=== PATIENT | male | born 1930 | race Caucasian/White ===

== ENCOUNTER 2017-10-01 17:03 | Emergency (ER) | payer MEDICARE, OTHER ==
[~2017-10-01] VITALS: Ht 175.3 cm; Wt 110.0 kg
[~2017-10-01 17:03] MED LIST: ACET650T12 PO; BENZ100C5 PO; BYST5TAB2 PO; COUM1TAB14 PO; COUM1TAB17 PO; COUM1TAB19 PO; LASI40TA PO; LEVA1TAB2 PO; LEVO500T3 PO; OCUVTAB PO
[2017-10-01] MEDS ORDERED: VENTAER IN (17:19)
[2017-10-01] MEDS ORDERED: ATEN25TA PO (17:19)
[2017-10-01] MEDS ORDERED: LANS15CA PO (17:19)
[2017-10-01] MEDS ORDERED: BREO1INH INH (17:19)
[2017-10-01] MEDS ORDERED: COUM2.5T17 PO (17:19)
[2017-10-01] MEDS ORDERED: LIDOCAINE 2% 5ML JELLY UROJET TOP ONE (18:00)
[2017-10-01 18:06] LABS: MEAN CORPUSCULAR HEMOGLOBIN 30.7 pg (27.0-33.0); MEAN CORPUSCULAR VOLUME 93.1 fl (80.0-96.0); PLATELET COUNT, AUTOMATED 238 10^3/uL (150-450); RED CELL DISTRIBUTION WIDTH 14.4 % (11.5-14.5); WHITE BLOOD COUNT 10.4 10^3/uL (4.0-10.0)
[2017-10-01 18:20] LABS: INR 1.97
[2017-10-01 19:55] VITALS: BP 178/104
== END 2017-10-01 19:58 | disposition home or self-care (01) ==
LOC: M ED 17:03
DX: N48.89 Other specified disorders of penis (principal); I48.91 Unspecified atrial fibrillation; I10 Essential (primary) hypertension; J44.9 Chronic obstructive pulmonary disease, unspecified; C61 Malignant neoplasm of prostate; R91.8 Other nonspecific abnormal finding of lung field; Z79.01 Long term (current) use of anticoagulants; Z79.899 Other long term (current) drug therapy

== ENCOUNTER 2017-10-09 05:46 | Emergency (ER) | payer MEDICARE, OTHER ==
[~2017-10-09] VITALS: Ht 175.3 cm; Wt 64.5 kg
[~2017-10-09 05:46] MED LIST changes: +ATEN25TA PO; +BREO1INH INH; +COUM2.5T17 PO; +LANS15CA PO; +VENTAER IN
[2017-10-09] MEDS ORDERED: PREV15CA18 PO (06:21)
[2017-10-09] MEDS ORDERED: LIDOCAINE 2% 5ML JELLY UROJET TOP ONE (06:30)
[2017-10-09 09:06] VITALS: BP 162/80
== END 2017-10-09 09:10 | disposition home or self-care (01) ==
LOC: EDBD 05:46 → M ED 05:46
DX: R31.9 Hematuria, unspecified (principal); C61 Malignant neoplasm of prostate; I10 Essential (primary) hypertension; I48.91 Unspecified atrial fibrillation; R91.8 Other nonspecific abnormal finding of lung field; K44.9 Diaphragmatic hernia without obstruction or gangrene; K76.89 Other specified diseases of liver; Z79.899 Other long term (current) drug therapy; Z79.01 Long term (current) use of anticoagulants

== ENCOUNTER 2017-10-19 20:32 | Emergency (ER) | payer MEDICARE, OTHER ==
[~2017-10-19] VITALS: Ht 175.3 cm; Wt 64.5 kg
[~2017-10-19 20:32] MED LIST changes: +PREV15CA18 PO
[2017-10-19] MEDS ORDERED: NORCO, ANEXSIA 5/325MG TABLET (HYDROcodone/ACETAMINOPHEN) PO ONE ×2 (21:15→22:30)
[2017-10-19 21:22] LABS: BASO % 0.1 % (0.0-1.0); IMMATURE GRANULOCYTE % 0.9 % (0-0); LYMPH # 0.4 10^3/uL (1.5-4.5); LYMPH % 1.7 % (24.0-44.0); MEAN CORPUSCULAR HEMOGLOBIN 31.2 pg (27.0-33.0); MEAN CORPUSCULAR HGB CONC 33.5 g/dl (32.0-36.5); MEAN CORPUSCULAR VOLUME 93.2 fl (80.0-96.0); MONO # 1.4 10^3/uL (0.0-0.8); MONO % 6.7 % (0.0-5.0); NEUTROPHILS # 18.5 10^3/uL (1.8-7.7); NEUTROPHILS % 90.6 % (36.0-66.0); PLATELET COUNT, AUTOMATED 280 10^3/uL (150-450); RED CELL DISTRIBUTION WIDTH 13.9 % (11.5-14.5); WHITE BLOOD COUNT 20.4 10^3/uL (4.0-10.0)
[2017-10-19] MEDS ORDERED: MORPHINE 2 MG/ML 1ML SYRINGE IV ONE (22:30)
[2017-10-19] MEDS ORDERED: LISINOPRIL 20 MG TAB PO ONE (22:30)
--- NOTE | 2017-10-19 23:00 | REPUSA ---
Clinical history: Pain, swelling. Findings: The common femoral, superficial femoral, popliteal, and other deep venous structures compre ss normally and demonstrate normal color Doppler flow. Normal venous waveforms with augmentation are seen. Impression: No evidence of deep vein thrombosis in the left femoral popliteal venous system.
[2017-10-19 23:27] LABS: ANION GAP 12 MEQ/L (8-16); BLOOD UREA NITROGEN 22 MG/DL (7-18); CALCIUM LEVEL 8.7 MG/DL (8.8-10.2); CARBON DIOXIDE LEVEL 21 MEQ/L (21-32); CHLORIDE LEVEL 101 MEQ/L (98-107); CREATININE FOR GFR 0.83 MG/DL (0.70-1.30); GLOMERULAR FILTRATION RATE > 60.0 (>35); GLUCOSE, FASTING 110 MG/DL (83-110); POTASSIUM SERUM 4.2 MEQ/L (3.5-5.1); SODIUM LEVEL 134 MEQ/L (136-145)
[2017-10-19 23:28] LABS: INR 5.64
[2017-10-20] MEDS ORDERED: PHYTONADIONE 5 MG TAB PO ONE
[2017-10-20] MEDS ORDERED: AUGMENTIN 875 MG TAB PO ONE
[2017-10-20] MEDS ORDERED: AUGM500T34 PO (00:18)
[2017-10-20] MEDS ORDERED: NORCO 5/325MG TABLET (BULK FOR ED) PO ONE (00:30)
[2017-10-20 00:37] VITALS: BP 94/60
[2017-10-20] MEDS ORDERED: WARF-18 PO (00:41)
== END 2017-10-20 01:01 | disposition home or self-care (01) ==
LOC: M ED 20:32
DX: I83.90 Asymptomatic varicose veins of unspecified lower extremity (principal); I83.008 Varicose veins of unspecified lower extremity with ulcer other part of lower leg; L03.116 Cellulitis of left lower limb; D68.32 Hemorrhagic disorder due to extrinsic circulating anticoagulants; I48.91 Unspecified atrial fibrillation; I10 Essential (primary) hypertension; K21.9 Gastro-esophageal reflux disease without esophagitis; J44.9 Chronic obstructive pulmonary disease, unspecified; Z79.01 Long term (current) use of anticoagulants; Z79.899 Other long term (current) drug therapy

== ENCOUNTER → 2017-12-24 | Outpatient (CLI) | payer MEDICARE, OTHER ==
[2017-12-24 13:17] LABS: BASO % 0.4 % (0.0-1.0); EOS % 0.3 % (0.0-3.0); HEMATOCRIT 34.2 % (42.0-52.0); HEMOGLOBIN 11.1 g/dl (14.0-18.0); IMMATURE GRANULOCYTE % 0.9 % (0-3.0); LYMPH # 0.7 10^3/uL (1.5-4.5); LYMPH % 9.7 % (24.0-44.0); MEAN CORPUSCULAR HEMOGLOBIN 30.9 pg (27.0-33.0); MEAN CORPUSCULAR HGB CONC 32.5 g/dl (32.0-36.5); MEAN CORPUSCULAR VOLUME 95.3 fl (80.0-96.0); MONO # 0.9 10^3/uL (0.0-0.8); MONO % 11.8 % (0.0-5.0); NEUTROPHILS # 5.8 10^3/uL (1.8-7.7); NEUTROPHILS % 76.9 % (36.0-66.0); PLATELET COUNT, AUTOMATED 222 10^3/uL (150-450); RED BLOOD COUNT 3.59 10^6/uL (4.30-6.10); RED CELL DISTRIBUTION WIDTH 17.3 % (11.5-14.5); WHITE BLOOD COUNT 7.5 10^3/uL (4.0-10.0)
[2017-12-24 14:03] LABS: ANION GAP 9 MEQ/L (8-16); BLOOD UREA NITROGEN 29 MG/DL (7-18); CALCIUM LEVEL 8.9 MG/DL (8.8-10.2); CARBON DIOXIDE LEVEL 24 MEQ/L (21-32); CHLORIDE LEVEL 108 MEQ/L (98-107); CREATININE FOR GFR 0.81 MG/DL (0.70-1.30); GLOMERULAR FILTRATION RATE > 60.0 (>35); GLUCOSE, FASTING 80 MG/DL (70-100); POTASSIUM SERUM 4.6 MEQ/L (3.5-5.1); SODIUM LEVEL 141 MEQ/L (136-145)
== END ==
LOC: M LAB 12:52
DX: I70.213 Atherosclerosis of native arteries of extremities with intermittent claudication, bilateral legs (principal); I70.249 Atherosclerosis of native arteries of left leg with ulceration of unspecified site; I87.393 Chronic venous hypertension (idiopathic) with other complications of bilateral lower extremity
CPT/HCPCS: 80048

== ENCOUNTER 2017-12-29 17:10 | Inpatient (IN) | payer MEDICARE, OTHER ==
[2017-12-29] MEDS: RIVAROXABAN 15 MG TAB (XARELTO) PO (17:00)
[2017-12-29] MEDS: METOPROLOL 5 MG/5 ML VIAL IV ×3 (18:15→18:25)
[2017-12-29] MEDS: METOPROLOL TART 25 MG TABLET PO (18:15)
[2017-12-29 18:31] LABS: BASO % 0.1 % (0.0-1.0); HEMATOCRIT 31.5 % (42.0-52.0); HEMOGLOBIN 10.6 g/dl (14.0-18.0); IMMATURE GRANULOCYTE % 0.8 % (0-3.0); LYMPH # 0.4 10^3/uL (1.5-4.5); LYMPH % 1.8 % (24.0-44.0); MEAN CORPUSCULAR HEMOGLOBIN 31.4 pg (27.0-33.0); MEAN CORPUSCULAR HGB CONC 33.7 g/dl (32.0-36.5); MEAN CORPUSCULAR VOLUME 93.2 fl (80.0-96.0); MONO # 1.1 10^3/uL (0.0-0.8); MONO % 5.6 % (0.0-5.0); NEUTROPHILS # 18.6 10^3/uL (1.8-7.7); NEUTROPHILS % 91.7 % (36.0-66.0); PLATELET COUNT, AUTOMATED 201 10^3/uL (150-450); RED BLOOD COUNT 3.38 10^6/uL (4.30-6.10); RED CELL DISTRIBUTION WIDTH 17.2 % (11.5-14.5); WHITE BLOOD COUNT 20.3 10^3/uL (4.0-10.0)
[2017-12-29] MEDS: ACETAMINOPHEN TAB 650MG DOSE (2X325MG) PO (18:45)
[2017-12-29 18:48] LABS: INR 1.17; PROTHROMBIN TIME 15.1 SECONDS (12.4-14.5)
[2017-12-29 18:49] LABS: PARTIAL THROMBOPLASTIN TIME 33.1 SECONDS (26.8-37.9)
[2017-12-29 18:53] LABS: ANION GAP 10 MEQ/L (8-16); BLOOD UREA NITROGEN 22 MG/DL (7-18); CALCIUM LEVEL 8.6 MG/DL (8.8-10.2); CARBON DIOXIDE LEVEL 21 MEQ/L (21-32); CHLORIDE LEVEL 109 MEQ/L (98-107); CPK CREATINE PHOSPHOKINASE 83 U/L (39-308); CREATININE FOR GFR 0.75 MG/DL (0.70-1.30); GLOMERULAR FILTRATION RATE > 60.0 (>35); GLUCOSE, FASTING 118 MG/DL (70-100); POTASSIUM SERUM 4.2 MEQ/L (3.5-5.1); SODIUM LEVEL 140 MEQ/L (136-145); T UPTAKE 35 % (33-40); THYROXINE (T4) 11.4 UG/DL (4.5-12.0); TROPONIN I < 0.02 NG/ML (< 0.10)
[2017-12-29 18:59] LABS: CK-MB VALUE MASS 3.9 NG/ML (0.0-3.6); MB/CK RELATIVE INDEX 4.69 (< OR =4); NT-PRO BNP 8301 PG/ML (<450); THYROID STIMULATING HORMONE 0.209 uIU/ML (0.358-3.740)
[2017-12-29 19:28] LABS: C REACTIVE PROTEIN QUANTITATIV 5.06 MG/DL (0.00-0.30)
[2017-12-29] MEDS ORDERED: ONDANSETRON 4MG/2ML VIAL (J2405) IV (19:30)
[2017-12-29] MEDS ORDERED: ALBUTEROL 90 MCG/ACT 8GM HFA INHALER INH (19:30)
[2017-12-29 20:31] LABS: LACTIC ACID SEPSIS PROTOCOL 1.9 MMOL/L (0.4-2.0)
[2017-12-29] MEDS: CEFTAROLINE FOSAMIL 400 MG in D5W MINI-BAG PLUS 50 ML IV (21:00)
[2017-12-29] MEDS: ATENOLOL 25 MG TAB PO (21:00)
[2017-12-29] MEDS: FUROSEMIDE 20 MG/2 ML VIAL (J1940) IV (21:00)
[2017-12-29] MEDS: SENOKOT S TAB PO (21:00)
[2017-12-30 00:58] LABS: CK-MB VALUE MASS 3.3 NG/ML (0.0-3.6); CPK CREATINE PHOSPHOKINASE 87 U/L (39-308); MB/CK RELATIVE INDEX 3.79 (< OR =4); TROPONIN I 0.02 NG/ML (< 0.10)
[2017-12-30] MEDS: ACETAMINOPHEN TAB 650MG DOSE (2X325MG) PO ×3 (01:41→20:33)
[2017-12-30 05:54] LABS: HEMATOCRIT 29.8 % (42.0-52.0); HEMOGLOBIN 9.9 g/dl (14.0-18.0); MEAN CORPUSCULAR HGB CONC 33.2 g/dl (32.0-36.5); MEAN CORPUSCULAR VOLUME 93.4 fl (80.0-96.0); PLATELET COUNT, AUTOMATED 172 10^3/uL (150-450); RED BLOOD COUNT 3.19 10^6/uL (4.30-6.10); RED CELL DISTRIBUTION WIDTH 17.2 % (11.5-14.5); WHITE BLOOD COUNT 17.2 10^3/uL (4.0-10.0)
[2017-12-30] MEDS: SLF 3 ML SYR IV ×3 (06:00→20:35)
[2017-12-30 06:03] LABS: INR 2.64; PROTHROMBIN TIME 29.3 SECONDS (12.4-14.5)
[2017-12-30 06:22] LABS: ALBUMIN 2.9 GM/DL (3.2-5.2); ALBUMIN/GLOBULIN RATIO 0.85 (1.00-1.93); ALKALINE PHOSPHATASE 99 U/L (45-117); ALT/SGPT 22 U/L (12-78); ANION GAP 9 MEQ/L (8-16); AST/SGOT 23 U/L (7-37); BILIRUBIN,TOTAL 2.4 MG/DL (0.2-1.0); BLOOD UREA NITROGEN 19 MG/DL (7-18); CALCIUM LEVEL 8.6 MG/DL (8.8-10.2); CARBON DIOXIDE LEVEL 23 MEQ/L (21-32); CHLORIDE LEVEL 106 MEQ/L (98-107); CK-MB VALUE MASS 3.3 NG/ML (0.0-3.6); CPK CREATINE PHOSPHOKINASE 164 U/L (39-308); CREATININE FOR GFR 0.79 MG/DL (0.70-1.30); GLOMERULAR FILTRATION RATE > 60.0 (>35); GLUCOSE, FASTING 97 MG/DL (70-100); MAGNESIUM LEVEL 1.8 MG/DL (1.8-2.4); MB/CK RELATIVE INDEX 2.01 (< OR =4); POTASSIUM SERUM 3.8 MEQ/L (3.5-5.1); SODIUM LEVEL 138 MEQ/L (136-145); TOTAL PROTEIN 6.3 GM/DL (6.4-8.2); TROPONIN I 0.02 NG/ML (< 0.10)
[2017-12-30] MEDS: FUROSEMIDE 20 MG/2 ML VIAL (J1940) IV ×2 (08:35→20:35)
[2017-12-30] MEDS: SENOKOT S TAB PO ×2 (08:36→20:25)
[2017-12-30] MEDS: CEFTAROLINE FOSAMIL 400 MG in D5W MINI-BAG PLUS 50 ML IV ×2 (08:36→20:34)
[2017-12-30] MEDS: BREO ELLIPTA 200-25MCG/INH (PATIENT'S OWN MED) INH (09:00)
[2017-12-30] MEDS: RIVAROXABAN 15 MG TAB (XARELTO) PO (16:55)
[2017-12-30] MEDS: ATENOLOL 25 MG TAB PO (20:34)
[2017-12-31 05:34] LABS: HEMOGLOBIN 9.8 g/dl (14.0-18.0); MEAN CORPUSCULAR HEMOGLOBIN 31.5 pg (27.0-33.0); MEAN CORPUSCULAR HGB CONC 33.8 g/dl (32.0-36.5); MEAN CORPUSCULAR VOLUME 93.2 fl (80.0-96.0); PLATELET COUNT, AUTOMATED 173 10^3/uL (150-450); RED BLOOD COUNT 3.11 10^6/uL (4.30-6.10); RED CELL DISTRIBUTION WIDTH 17.2 % (11.5-14.5); WHITE BLOOD COUNT 11.1 10^3/uL (4.0-10.0)
[2017-12-31 05:40] LABS: INR 2.15; PROTHROMBIN TIME 24.8 SECONDS (12.4-14.5)
[2017-12-31 06:03] LABS: ALBUMIN 2.6 GM/DL (3.2-5.2); ALBUMIN/GLOBULIN RATIO 0.72 (1.00-1.93); ALKALINE PHOSPHATASE 95 U/L (45-117); ALT/SGPT 19 U/L (12-78); ANION GAP 9 MEQ/L (8-16); AST/SGOT 19 U/L (7-37); BILIRUBIN,TOTAL 1.4 MG/DL (0.2-1.0); BLOOD UREA NITROGEN 22 MG/DL (7-18); CALCIUM LEVEL 8.4 MG/DL (8.8-10.2); CARBON DIOXIDE LEVEL 25 MEQ/L (21-32); CHLORIDE LEVEL 103 MEQ/L (98-107); CREATININE FOR GFR 0.87 MG/DL (0.70-1.30); GLOMERULAR FILTRATION RATE > 60.0 (>35); GLUCOSE, FASTING 83 MG/DL (70-100); MAGNESIUM LEVEL 1.8 MG/DL (1.8-2.4); POTASSIUM SERUM 3.2 MEQ/L (3.5-5.1); SODIUM LEVEL 137 MEQ/L (136-145); TOTAL PROTEIN 6.2 GM/DL (6.4-8.2)
[2017-12-31] MEDS: SLF 3 ML SYR IV ×3 (08:29→21:10)
[2017-12-31] MEDS: SENOKOT S TAB PO ×2 (08:29→21:05)
[2017-12-31] MEDS: POTASSIUM CHLORIDE 10 MEQ SR TABLET PO (08:29)
[2017-12-31] MEDS: FUROSEMIDE 20 MG/2 ML VIAL (J1940) IV ×2 (08:30→21:09)
[2017-12-31] MEDS: CEFTAROLINE FOSAMIL 400 MG in D5W MINI-BAG PLUS 50 ML IV ×2 (08:30→21:06)
[2017-12-31] MEDS: EUCERIN 120GM CREAM TOP ×2 (09:00→21:00)
[2017-12-31] MEDS: SANTYL OINT 30GM TOP (09:00)
[2017-12-31 09:40] LABS: THYROGLOBULIN ANTIBODY < 15.0 U/ML (<60.0)
[2017-12-31] MEDS: BREO ELLIPTA 200-25MCG/INH (PATIENT'S OWN MED) INH (11:55)
[2017-12-31] MEDS: RIVAROXABAN 15 MG TAB (XARELTO) PO (16:40)
[2017-12-31] MEDS: ATENOLOL 25 MG TAB PO (21:05)
[2018-01-01] MEDS: ACETAMINOPHEN TAB 650MG DOSE (2X325MG) PO ×3 (00:53→21:27)
[2018-01-01] MEDS: SLF 3 ML SYR IV ×3 (05:46→21:27)
[2018-01-01 05:56] LABS: HEMATOCRIT 28.9 % (42.0-52.0); HEMOGLOBIN 9.7 g/dl (14.0-18.0); MEAN CORPUSCULAR HEMOGLOBIN 30.4 pg (27.0-33.0); MEAN CORPUSCULAR HGB CONC 33.6 g/dl (32.0-36.5); MEAN CORPUSCULAR VOLUME 90.6 fl (80.0-96.0); PLATELET COUNT, AUTOMATED 198 10^3/uL (150-450); RED BLOOD COUNT 3.19 10^6/uL (4.30-6.10); RED CELL DISTRIBUTION WIDTH 16.4 % (11.5-14.5); WHITE BLOOD COUNT 9.2 10^3/uL (4.0-10.0)
[2018-01-01 06:24] LABS: ALBUMIN 2.4 GM/DL (3.2-5.2); ALBUMIN/GLOBULIN RATIO 0.69 (1.00-1.93); ALKALINE PHOSPHATASE 91 U/L (45-117); ALT/SGPT 17 U/L (12-78); ANION GAP 8 MEQ/L (8-16); AST/SGOT 16 U/L (7-37); BLOOD UREA NITROGEN 23 MG/DL (7-18); C REACTIVE PROTEIN QUANTITATIV 9.36 MG/DL (0.00-0.30); CARBON DIOXIDE LEVEL 25 MEQ/L (21-32); CHLORIDE LEVEL 102 MEQ/L (98-107); CREATININE FOR GFR 0.91 MG/DL (0.70-1.30); GLOMERULAR FILTRATION RATE > 60.0 (>35); GLUCOSE, FASTING 84 MG/DL (70-100); MAGNESIUM LEVEL 1.9 MG/DL (1.8-2.4); NT-PRO BNP 7233 PG/ML (<450); POTASSIUM SERUM 3.7 MEQ/L (3.5-5.1); SODIUM LEVEL 135 MEQ/L (136-145); TOTAL PROTEIN 5.9 GM/DL (6.4-8.2)
[2018-01-01] MEDS: FUROSEMIDE 20 MG/2 ML VIAL (J1940) IV ×2 (09:42→21:27)
[2018-01-01] MEDS: CEFTAROLINE FOSAMIL 400 MG in D5W MINI-BAG PLUS 50 ML IV ×2 (09:43→21:28)
[2018-01-01] MEDS: EUCERIN 120GM CREAM TOP ×2 (09:43→21:00)
[2018-01-01] MEDS: SENOKOT S TAB PO ×2 (09:43→21:00)
[2018-01-01] MEDS: BREO ELLIPTA 200-25MCG/INH (PATIENT'S OWN MED) INH (09:43)
[2018-01-01] MEDS: SANTYL OINT 30GM TOP (09:43)
[2018-01-01] MEDS: DIAPER RELIEF PASTE (DESITIN) 60GM TOP (15:54)
[2018-01-01] MEDS: RIVAROXABAN 15 MG TAB (XARELTO) PO (17:40)
[2018-01-01] MEDS: ATENOLOL 25 MG TAB PO (21:26)
[2018-01-02] MEDS: SLF 3 ML SYR IV ×3 (06:00→20:35)
[2018-01-02] MEDS ORDERED: HEPARIN 1,000 UNITS/ML 10ML VIAL (FOR RADIOLOGY& DIALYSIS ONLY) As Ordered (06:33)
[2018-01-02] MEDS ORDERED: MIDAZOLAM INJ 2 MG/2 ML VIAL (J2250) As Ordered (06:33)
[2018-01-02] MEDS ORDERED: fentaNYL 100 MCG/2 ML INJECTION (J3010) As Ordered (06:33)
[2018-01-02] MEDS ORDERED: PROTAMINE SULF INJ 50 MG/5 ML VIAL (J2720) As Ordered (06:34)
[2018-01-02] MEDS ORDERED: ISOVUE-300 61% 50ML VIAL (Q9967) As Ordered (06:34)
[2018-01-02 06:37] LABS: HEMATOCRIT 30.8 % (42.0-52.0); HEMOGLOBIN 10.3 g/dl (14.0-18.0); MEAN CORPUSCULAR HEMOGLOBIN 30.5 pg (27.0-33.0); MEAN CORPUSCULAR HGB CONC 33.4 g/dl (32.0-36.5); MEAN CORPUSCULAR VOLUME 91.1 fl (80.0-96.0); PLATELET COUNT, AUTOMATED 228 10^3/uL (150-450); RED BLOOD COUNT 3.38 10^6/uL (4.30-6.10); WHITE BLOOD COUNT 7.9 10^3/uL (4.0-10.0)
[2018-01-02 07:05] LABS: ALBUMIN 2.4 GM/DL (3.2-5.2); ALBUMIN/GLOBULIN RATIO 0.63 (1.00-1.93); ALKALINE PHOSPHATASE 91 U/L (45-117); ALT/SGPT 17 U/L (12-78); ANION GAP 10 MEQ/L (8-16); AST/SGOT 19 U/L (7-37); BILIRUBIN,TOTAL 0.8 MG/DL (0.2-1.0); BLOOD UREA NITROGEN 24 MG/DL (7-18); C REACTIVE PROTEIN QUANTITATIV 8.06 MG/DL (0.00-0.30); CALCIUM LEVEL 8.3 MG/DL (8.8-10.2); CARBON DIOXIDE LEVEL 27 MEQ/L (21-32); CHLORIDE LEVEL 99 MEQ/L (98-107); CREATININE FOR GFR 0.87 MG/DL (0.70-1.30); GLOMERULAR FILTRATION RATE > 60.0 (>35); GLUCOSE, FASTING 84 MG/DL (70-100); POTASSIUM SERUM 3.7 MEQ/L (3.5-5.1); SODIUM LEVEL 136 MEQ/L (136-145); TOTAL PROTEIN 6.2 GM/DL (6.4-8.2)
[2018-01-02] MEDS: SENOKOT S TAB PO ×3 (09:00→20:36)
[2018-01-02] MEDS: DOXYCYCLINE HYCLATE 100 MG TAB PO ×2 (09:12→20:36)
[2018-01-02] MEDS: LevoFLOXacin IV 500 MG in APPROPRIATE DILUENT 1 EA IV (09:12)
[2018-01-02] MEDS: ACETAMINOPHEN TAB 650MG DOSE (2X325MG) PO ×3 (09:12→16:25)
[2018-01-02] MEDS: FUROSEMIDE 20 MG/2 ML VIAL (J1940) IV ×2 (09:13→20:35)
[2018-01-02] MEDS: EUCERIN 120GM CREAM TOP ×2 (09:13→20:35)
[2018-01-02] MEDS: SANTYL OINT 30GM TOP (09:14)
[2018-01-02] MEDS: DIAPER RELIEF PASTE (DESITIN) 60GM TOP (09:19)
[2018-01-02] MEDS: BREO ELLIPTA 200-25MCG/INH (PATIENT'S OWN MED) INH (14:29)
[2018-01-02] MEDS: RIVAROXABAN 15 MG TAB (XARELTO) PO (16:54)
[2018-01-02] MEDS: ATENOLOL 25 MG TAB PO (20:36)
[2018-01-03] MEDS: SLF 3 ML SYR IV ×3 (03:36→20:03)
[2018-01-03 05:53] LABS: HEMATOCRIT 30.9 % (42.0-52.0); HEMOGLOBIN 10.4 g/dl (14.0-18.0); MEAN CORPUSCULAR HGB CONC 33.7 g/dl (32.0-36.5); PLATELET COUNT, AUTOMATED 232 10^3/uL (150-450); RED BLOOD COUNT 3.36 10^6/uL (4.30-6.10); RED CELL DISTRIBUTION WIDTH 15.9 % (11.5-14.5); WHITE BLOOD COUNT 9.9 10^3/uL (4.0-10.0)
[2018-01-03 06:08] LABS: ALBUMIN 2.5 GM/DL (3.2-5.2); ALBUMIN/GLOBULIN RATIO 0.66 (1.00-1.93); ALKALINE PHOSPHATASE 93 U/L (45-117); ALT/SGPT 18 U/L (12-78); ANION GAP 9 MEQ/L (8-16); AST/SGOT 16 U/L (7-37); BILIRUBIN,TOTAL 0.9 MG/DL (0.2-1.0); BLOOD UREA NITROGEN 24 MG/DL (7-18); C REACTIVE PROTEIN QUANTITATIV 5.26 MG/DL (0.00-0.30); CALCIUM LEVEL 8.7 MG/DL (8.8-10.2); CARBON DIOXIDE LEVEL 27 MEQ/L (21-32); CHLORIDE LEVEL 99 MEQ/L (98-107); CREATININE FOR GFR 0.83 MG/DL (0.70-1.30); GLOMERULAR FILTRATION RATE > 60.0 (>35); GLUCOSE, FASTING 90 MG/DL (70-100); MAGNESIUM LEVEL 1.9 MG/DL (1.8-2.4); POTASSIUM SERUM 3.7 MEQ/L (3.5-5.1); SODIUM LEVEL 135 MEQ/L (136-145); TOTAL PROTEIN 6.3 GM/DL (6.4-8.2)
[2018-01-03] MEDS: BREO ELLIPTA 200-25MCG/INH (PATIENT'S OWN MED) INH (08:47)
[2018-01-03] MEDS: LevoFLOXacin IV 500 MG in APPROPRIATE DILUENT 1 EA IV (08:56)
[2018-01-03] MEDS: FUROSEMIDE 40 MG TAB PO (08:57)
[2018-01-03] MEDS: SENOKOT S TAB PO ×2 (08:57→20:02)
[2018-01-03] MEDS: DOXYCYCLINE HYCLATE 100 MG TAB PO ×2 (08:57→20:02)
[2018-01-03] MEDS: ACETAMINOPHEN TAB 650MG DOSE (2X325MG) PO ×3 (09:10→20:00)
[2018-01-03] MEDS: EUCERIN 120GM CREAM TOP ×2 (13:42→20:02)
[2018-01-03] MEDS: DIAPER RELIEF PASTE (DESITIN) 60GM TOP (13:44)
[2018-01-03] MEDS: SANTYL OINT 30GM TOP (13:44)
[2018-01-03] MEDS: RIVAROXABAN 15 MG TAB (XARELTO) PO (16:44)
[2018-01-03] MEDS: ATENOLOL 25 MG TAB PO (20:02)
[2018-01-04] MEDS: LANSOPRAZOLE SUSPENSION 30 MG/10 ML ORAL SYRINGE (FIRST-LANSOPRAZOLE) PO ×2 (02:00→08:46)
[2018-01-04 03:30] LABS: HEMATOCRIT 31.4 % (42.0-52.0); HEMOGLOBIN 10.4 g/dl (14.0-18.0); MEAN CORPUSCULAR HEMOGLOBIN 30.3 pg (27.0-33.0); MEAN CORPUSCULAR HGB CONC 33.1 g/dl (32.0-36.5); MEAN CORPUSCULAR VOLUME 91.5 fl (80.0-96.0); PLATELET COUNT, AUTOMATED 247 10^3/uL (150-450); RED BLOOD COUNT 3.43 10^6/uL (4.30-6.10); RED CELL DISTRIBUTION WIDTH 15.8 % (11.5-14.5); WHITE BLOOD COUNT 9.9 10^3/uL (4.0-10.0)
[2018-01-04] MEDS: ACETAMINOPHEN TAB 650MG DOSE (2X325MG) PO ×3 (03:34→21:30)
[2018-01-04 03:53] LABS: ALBUMIN 2.6 GM/DL (3.2-5.2); ALBUMIN/GLOBULIN RATIO 0.84 (1.00-1.93); ALKALINE PHOSPHATASE 87 U/L (45-117); ALT/SGPT 17 U/L (12-78); ANION GAP 7 MEQ/L (8-16); AST/SGOT 16 U/L (7-37); BLOOD UREA NITROGEN 24 MG/DL (7-18); CALCIUM LEVEL 8.2 MG/DL (8.8-10.2); CARBON DIOXIDE LEVEL 29 MEQ/L (21-32); CHLORIDE LEVEL 100 MEQ/L (98-107); CREATININE FOR GFR 0.79 MG/DL (0.70-1.30); GLOMERULAR FILTRATION RATE > 60.0 (>35); GLUCOSE, FASTING 95 MG/DL (70-100); MAGNESIUM LEVEL 1.9 MG/DL (1.8-2.4); SODIUM LEVEL 136 MEQ/L (136-145); TOTAL PROTEIN 5.7 GM/DL (6.4-8.2)
[2018-01-04] MEDS: SLF 3 ML SYR IV ×3 (05:45→21:31)
[2018-01-04] MEDS: KETOROLAC 30 MG/ML VIAL (J1885) IV (05:45)
[2018-01-04] MEDS: BREO ELLIPTA 200-25MCG/INH (PATIENT'S OWN MED) INH (08:06)
[2018-01-04] MEDS: SENOKOT S TAB PO ×2 (08:46→21:00)
[2018-01-04] MEDS: FUROSEMIDE 40 MG TAB PO (08:46)
[2018-01-04] MEDS: DOXYCYCLINE HYCLATE 100 MG TAB PO ×2 (08:46→21:30)
[2018-01-04] MEDS: LevoFLOXacin IV 500 MG in APPROPRIATE DILUENT 1 EA IV (08:46)
[2018-01-04] MEDS: EUCERIN 120GM CREAM TOP ×2 (14:38→21:31)
[2018-01-04] MEDS: SANTYL OINT 30GM TOP (14:38)
[2018-01-04] MEDS: DIAPER RELIEF PASTE (DESITIN) 60GM TOP (14:39)
[2018-01-04] MEDS: RIVAROXABAN 15 MG TAB (XARELTO) PO (17:26)
[2018-01-04 18:17] LABS: HEMATOCRIT 34.2 % (42.0-52.0); HEMOGLOBIN 11.2 g/dl (14.0-18.0)
[2018-01-05] MEDS: traMADol 50 MG TAB PO ×2 (02:03→18:08)
[2018-01-05 05:21] LABS: HEMOGLOBIN 10.1 g/dl (14.0-18.0); MEAN CORPUSCULAR HEMOGLOBIN 31.2 pg (27.0-33.0); MEAN CORPUSCULAR HGB CONC 33.7 g/dl (32.0-36.5); MEAN CORPUSCULAR VOLUME 92.6 fl (80.0-96.0); PLATELET COUNT, AUTOMATED 246 10^3/uL (150-450); RED BLOOD COUNT 3.24 10^6/uL (4.30-6.10); RED CELL DISTRIBUTION WIDTH 15.7 % (11.5-14.5); WHITE BLOOD COUNT 11.2 10^3/uL (4.0-10.0)
[2018-01-05 05:34] LABS: ALBUMIN 2.4 GM/DL (3.2-5.2); ALBUMIN/GLOBULIN RATIO 0.65 (1.00-1.93); ALKALINE PHOSPHATASE 85 U/L (45-117); ALT/SGPT 14 U/L (12-78); ANION GAP 6 MEQ/L (8-16); AST/SGOT 14 U/L (7-37); BILIRUBIN,TOTAL 0.8 MG/DL (0.2-1.0); BLOOD UREA NITROGEN 27 MG/DL (7-18); CALCIUM LEVEL 8.4 MG/DL (8.8-10.2); CARBON DIOXIDE LEVEL 28 MEQ/L (21-32); CHLORIDE LEVEL 102 MEQ/L (98-107); CREATININE FOR GFR 0.99 MG/DL (0.70-1.30); GLOMERULAR FILTRATION RATE > 60.0 (>35); GLUCOSE, FASTING 91 MG/DL (70-100); POTASSIUM SERUM 4.1 MEQ/L (3.5-5.1); SODIUM LEVEL 136 MEQ/L (136-145); TOTAL PROTEIN 6.1 GM/DL (6.4-8.2)
[2018-01-05] MEDS: ACETAMINOPHEN TAB 650MG DOSE (2X325MG) PO ×2 (05:41→20:08)
[2018-01-05] MEDS: LevoFLOXacin 500 MG TABLET PO (05:41)
[2018-01-05] MEDS: SLF 3 ML SYR IV ×3 (05:42→20:09)
[2018-01-05] MEDS: DIAPER RELIEF PASTE (DESITIN) 60GM TOP (09:00)
[2018-01-05] MEDS: BREO ELLIPTA 200-25MCG/INH (PATIENT'S OWN MED) INH (09:00)
[2018-01-05] MEDS: SANTYL OINT 30GM TOP (09:00)
[2018-01-05] MEDS: EUCERIN 120GM CREAM TOP ×2 (09:00→20:09)
[2018-01-05] MEDS: SENOKOT S TAB PO ×3 (09:00→20:18)
[2018-01-05] MEDS: FUROSEMIDE 40 MG TAB PO (09:41)
[2018-01-05] MEDS: DOXYCYCLINE HYCLATE 100 MG TAB PO ×2 (09:41→20:08)
[2018-01-05] MEDS: LANSOPRAZOLE SUSPENSION 30 MG/10 ML ORAL SYRINGE (FIRST-LANSOPRAZOLE) PO (09:42)
[2018-01-05] MEDS: RIVAROXABAN 15 MG TAB (XARELTO) PO (18:08)
[2018-01-05] MEDS: ATENOLOL 25 MG TAB PO (20:37)
[2018-01-06] MEDS: ACETAMINOPHEN TAB 650MG DOSE (2X325MG) PO ×2 (03:31→09:50)
[2018-01-06] MEDS: traMADol 50 MG TAB PO ×2 (06:20→21:03)
[2018-01-06] MEDS: SLF 3 ML SYR IV ×3 (06:20→21:04)
[2018-01-06] MEDS: LevoFLOXacin 500 MG TABLET PO (06:21)
[2018-01-06] MEDS: DOXYCYCLINE HYCLATE 100 MG TAB PO ×2 (07:40→21:04)
[2018-01-06] MEDS: LANSOPRAZOLE SUSPENSION 30 MG/10 ML ORAL SYRINGE (FIRST-LANSOPRAZOLE) PO (07:40)
[2018-01-06] MEDS: FUROSEMIDE 40 MG TAB PO (07:40)
[2018-01-06] MEDS: SENOKOT S TAB PO ×2 (07:41→20:59)
[2018-01-06] MEDS: EUCERIN 120GM CREAM TOP ×2 (07:41→21:04)
[2018-01-06] MEDS: DIAPER RELIEF PASTE (DESITIN) 60GM TOP (07:41)
[2018-01-06] MEDS: BREO ELLIPTA 200-25MCG/INH (PATIENT'S OWN MED) INH (07:41)
[2018-01-06] MEDS: SANTYL OINT 30GM TOP (07:42)
[2018-01-06 07:56] LABS: BASO # 0.1 10^3/uL (0.0-0.2); BASO % 0.4 % (0.0-1.0); EOS % 0.2 % (0.0-3.0); HEMATOCRIT 30.5 % (42.0-52.0); HEMOGLOBIN 10.2 g/dl (14.0-18.0); IMMATURE GRANULOCYTE % 2.8 % (0-3.0); LYMPH # 0.7 10^3/uL (1.5-4.5); LYMPH % 5.3 % (24.0-44.0); MEAN CORPUSCULAR HEMOGLOBIN 30.9 pg (27.0-33.0); MEAN CORPUSCULAR HGB CONC 33.4 g/dl (32.0-36.5); MEAN CORPUSCULAR VOLUME 92.4 fl (80.0-96.0); MONO # 1.2 10^3/uL (0.0-0.8); MONO % 9.4 % (0.0-5.0); NEUTROPHILS # 10.3 10^3/uL (1.8-7.7); NEUTROPHILS % 81.9 % (36.0-66.0); PLATELET COUNT, AUTOMATED 271 10^3/uL (150-450); RED CELL DISTRIBUTION WIDTH 15.8 % (11.5-14.5); WHITE BLOOD COUNT 12.6 10^3/uL (4.0-10.0)
[2018-01-06 08:18] LABS: ALBUMIN 2.6 GM/DL (3.2-5.2); ALBUMIN/GLOBULIN RATIO 0.67 (1.00-1.93); ALKALINE PHOSPHATASE 91 U/L (45-117); ALT/SGPT 14 U/L (12-78); ANION GAP 5 MEQ/L (8-16); AST/SGOT 16 U/L (7-37); BILIRUBIN,TOTAL 1.3 MG/DL (0.2-1.0); BLOOD UREA NITROGEN 25 MG/DL (7-18); CALCIUM LEVEL 8.6 MG/DL (8.8-10.2); CARBON DIOXIDE LEVEL 28 MEQ/L (21-32); CHLORIDE LEVEL 101 MEQ/L (98-107); CREATININE FOR GFR 0.94 MG/DL (0.70-1.30); GLOMERULAR FILTRATION RATE > 60.0 (>35); GLUCOSE, FASTING 109 MG/DL (70-100); POTASSIUM SERUM 4.1 MEQ/L (3.5-5.1); SODIUM LEVEL 134 MEQ/L (136-145); TOTAL PROTEIN 6.5 GM/DL (6.4-8.2)
[2018-01-06 08:45] LABS: BILIRUBIN,DIRECT 0.2 MG/DL (0.0-0.2)
[2018-01-06] MEDS: RIVAROXABAN 15 MG TAB (XARELTO) PO (17:36)
[2018-01-06] MEDS: ATENOLOL 25 MG TAB PO (21:04)
[2018-01-07] MEDS: ACETAMINOPHEN TAB 650MG DOSE (2X325MG) PO (00:08)
[2018-01-07 05:39] LABS: HEMATOCRIT 30.9 % (42.0-52.0); HEMOGLOBIN 10.4 g/dl (14.0-18.0); MEAN CORPUSCULAR HGB CONC 33.7 g/dl (32.0-36.5); PLATELET COUNT, AUTOMATED 272 10^3/uL (150-450); RED BLOOD COUNT 3.36 10^6/uL (4.30-6.10); RED CELL DISTRIBUTION WIDTH 15.6 % (11.5-14.5)
[2018-01-07] MEDS: SLF 3 ML SYR IV ×3 (06:06→22:42)
[2018-01-07] MEDS: LevoFLOXacin 500 MG TABLET PO (06:06)
[2018-01-07 06:19] LABS: ALBUMIN 2.6 GM/DL (3.2-5.2); ALBUMIN/GLOBULIN RATIO 0.84 (1.00-1.93); ALKALINE PHOSPHATASE 93 U/L (45-117); ALT/SGPT 12 U/L (12-78); AST/SGOT 14 U/L (7-37); BILIRUBIN,DIRECT 0.4 MG/DL (0.0-0.2); BILIRUBIN,TOTAL 1.3 MG/DL (0.2-1.0); TOTAL PROTEIN 5.7 GM/DL (6.4-8.2)
[2018-01-07 06:20] LABS: ANION GAP 8 MEQ/L (8-16); BLOOD UREA NITROGEN 29 MG/DL (7-18); CALCIUM LEVEL 8.8 MG/DL (8.8-10.2); CARBON DIOXIDE LEVEL 27 MEQ/L (21-32); CHLORIDE LEVEL 100 MEQ/L (98-107); CREATININE FOR GFR 0.95 MG/DL (0.70-1.30); GLOMERULAR FILTRATION RATE > 60.0 (>35); GLUCOSE, FASTING 98 MG/DL (70-100); SODIUM LEVEL 135 MEQ/L (136-145)
[2018-01-07] MEDS: FUROSEMIDE 40 MG TAB PO (08:39)
[2018-01-07] MEDS: SENOKOT S TAB PO ×2 (08:39→21:00)
[2018-01-07] MEDS: DOXYCYCLINE HYCLATE 100 MG TAB PO ×2 (08:40→22:41)
[2018-01-07] MEDS: LANSOPRAZOLE SUSPENSION 30 MG/10 ML ORAL SYRINGE (FIRST-LANSOPRAZOLE) PO (08:41)
[2018-01-07] MEDS: EUCERIN 120GM CREAM TOP ×2 (08:41→21:00)
[2018-01-07] MEDS: SANTYL OINT 30GM TOP (08:42)
[2018-01-07] MEDS: DIAPER RELIEF PASTE (DESITIN) 60GM TOP (08:43)
[2018-01-07] MEDS: BREO ELLIPTA 200-25MCG/INH (PATIENT'S OWN MED) INH (11:57)
[2018-01-07] MEDS ORDERED: fentaNYL 100 MCG/2 ML INJECTION (J3010) As Ordered ×2 (16:25→19:48)
[2018-01-07] MEDS ORDERED: MIDAZOLAM INJ 2 MG/2 ML VIAL (J2250) As Ordered (16:25)
[2018-01-07] MEDS ORDERED: LIDOCAINE 2% INJ 100 MG/5 ML SDV (FOR ANES.) As Ordered (16:25)
[2018-01-07] MEDS ORDERED: PROPOFOL 200 MG/20 ML VIAL As Ordered ×4 (16:25→18:42)
[2018-01-07] MEDS ORDERED: ISOVUE-300 61% 50ML VIAL (Q9967) As Ordered (16:34)
[2018-01-07] MEDS ORDERED: ePHEDrine INJ 50 MG/ML VIAL As Ordered (17:13)
[2018-01-07] MEDS ORDERED: PHENYLephrine HCL 500 MCG/5 ML (100MCG/ML) SYRINGE (J2370) As Ordered ×2 (17:13→17:41)
[2018-01-07] MEDS ORDERED: FUROSEMIDE 100 MG/10 ML VIAL (J1940) As Ordered (18:46)
[2018-01-07] MEDS: LR 1,000 ML IV (20:00)
[2018-01-07] MEDS: fentaNYL 100 MCG/2 ML INJECTION (J3010) IV (20:00)
[2018-01-07] MEDS: RIVAROXABAN 15 MG TAB (XARELTO) PO (22:41)
[2018-01-07] MEDS: ATENOLOL 25 MG TAB PO (23:03)
[2018-01-08] MEDS: SLF 3 ML SYR IV ×3 (05:18→21:57)
[2018-01-08] MEDS: LevoFLOXacin 500 MG TABLET PO (05:19)
[2018-01-08 05:47] LABS: HEMATOCRIT 31.9 % (42.0-52.0); HEMOGLOBIN 10.5 g/dl (14.0-18.0); MEAN CORPUSCULAR HEMOGLOBIN 30.7 pg (27.0-33.0); MEAN CORPUSCULAR HGB CONC 32.9 g/dl (32.0-36.5); MEAN CORPUSCULAR VOLUME 93.3 fl (80.0-96.0); PLATELET COUNT, AUTOMATED 264 10^3/uL (150-450); RED BLOOD COUNT 3.42 10^6/uL (4.30-6.10); RED CELL DISTRIBUTION WIDTH 15.6 % (11.5-14.5)
[2018-01-08 06:03] LABS: ANION GAP 7 MEQ/L (8-16); BLOOD UREA NITROGEN 28 MG/DL (7-18); CALCIUM LEVEL 8.7 MG/DL (8.8-10.2); CARBON DIOXIDE LEVEL 30 MEQ/L (21-32); CHLORIDE LEVEL 98 MEQ/L (98-107); CREATININE FOR GFR 0.98 MG/DL (0.70-1.30); GLOMERULAR FILTRATION RATE > 60.0 (>35); GLUCOSE, FASTING 89 MG/DL (70-100); POTASSIUM SERUM 3.9 MEQ/L (3.5-5.1); SODIUM LEVEL 135 MEQ/L (136-145)
[2018-01-08] MEDS: FUROSEMIDE 40 MG TAB PO (08:51)
[2018-01-08] MEDS: traMADol 50 MG TAB PO (08:51)
[2018-01-08] MEDS: DOXYCYCLINE HYCLATE 100 MG TAB PO ×2 (08:51→21:56)
[2018-01-08] MEDS: DIAPER RELIEF PASTE (DESITIN) 60GM TOP (08:52)
[2018-01-08] MEDS: EUCERIN 120GM CREAM TOP ×2 (08:52→21:56)
[2018-01-08] MEDS: LANSOPRAZOLE SUSPENSION 30 MG/10 ML ORAL SYRINGE (FIRST-LANSOPRAZOLE) PO (08:52)
[2018-01-08] MEDS: SANTYL OINT 30GM TOP (08:53)
[2018-01-08] MEDS: SENOKOT S TAB PO ×2 (08:53→21:00)
[2018-01-08] MEDS: BREO ELLIPTA 200-25MCG/INH (PATIENT'S OWN MED) INH (08:54)
[2018-01-08] MEDS: GABAPENTIN 100 MG CAP PO ×2 (14:00→21:56)
[2018-01-08] MEDS: CEFEPIME HCL 1 GM in D5W MINI-BAG PLUS 50 ML IV (18:41)
[2018-01-08] MEDS: RIVAROXABAN 15 MG TAB (XARELTO) PO (18:41)
[2018-01-08] MEDS: ATENOLOL 25 MG TAB PO (21:55)
[2018-01-09] MEDS: traMADol 50 MG TAB PO (02:14)
[2018-01-09] MEDS: CEFEPIME HCL 1 GM in D5W MINI-BAG PLUS 50 ML IV ×2 (04:57→18:07)
[2018-01-09 05:01] LABS: HEMATOCRIT 32.9 % (42.0-52.0); MEAN CORPUSCULAR HEMOGLOBIN 30.5 pg (27.0-33.0); MEAN CORPUSCULAR HGB CONC 33.4 g/dl (32.0-36.5); MEAN CORPUSCULAR VOLUME 91.1 fl (80.0-96.0); PLATELET COUNT, AUTOMATED 299 10^3/uL (150-450); RED BLOOD COUNT 3.61 10^6/uL (4.30-6.10); WHITE BLOOD COUNT 13.7 10^3/uL (4.0-10.0)
[2018-01-09] MEDS: GABAPENTIN 100 MG CAP PO ×3 (05:07→22:07)
[2018-01-09] MEDS: SLF 3 ML SYR IV ×3 (05:07→22:00)
[2018-01-09 05:38] LABS: ALBUMIN 2.5 GM/DL (3.2-5.2); ALBUMIN/GLOBULIN RATIO 0.61 (1.00-1.93); ALKALINE PHOSPHATASE 95 U/L (45-117); ALT/SGPT 14 U/L (12-78); ANION GAP 9 MEQ/L (8-16); AST/SGOT 19 U/L (7-37); BILIRUBIN,DIRECT 0.2 MG/DL (0.0-0.2); BILIRUBIN,TOTAL 1.1 MG/DL (0.2-1.0); BLOOD UREA NITROGEN 27 MG/DL (7-18); CALCIUM LEVEL 8.8 MG/DL (8.8-10.2); CARBON DIOXIDE LEVEL 26 MEQ/L (21-32); CHLORIDE LEVEL 97 MEQ/L (98-107); CREATININE FOR GFR 0.96 MG/DL (0.70-1.30); FREE THYROXINE INDEX 3.8 % (1.4-3.8); GLOMERULAR FILTRATION RATE > 60.0 (>35); GLUCOSE, FASTING 96 MG/DL (70-100); MAGNESIUM LEVEL 2.1 MG/DL (1.8-2.4); POTASSIUM SERUM 4.2 MEQ/L (3.5-5.1); SODIUM LEVEL 132 MEQ/L (136-145); T UPTAKE 40 % (33-40); THYROID STIMULATING HORMONE 0.506 uIU/ML (0.358-3.740); THYROXINE (T4) 9.4 UG/DL (4.5-12.0); TOTAL PROTEIN 6.6 GM/DL (6.4-8.2)
[2018-01-09] MEDS: BREO ELLIPTA 200-25MCG/INH (PATIENT'S OWN MED) INH (08:09)
[2018-01-09] MEDS: DIAPER RELIEF PASTE (DESITIN) 60GM TOP (09:00)
[2018-01-09] MEDS: SENOKOT S TAB PO ×2 (09:29→09:33)
[2018-01-09] MEDS: FUROSEMIDE 40 MG TAB PO (09:29)
[2018-01-09] MEDS: LANSOPRAZOLE SUSPENSION 30 MG/10 ML ORAL SYRINGE (FIRST-LANSOPRAZOLE) PO (09:30)
[2018-01-09] MEDS: EUCERIN 120GM CREAM TOP ×2 (09:31→22:08)
[2018-01-09] MEDS: DOXYCYCLINE HYCLATE 100 MG TAB PO ×2 (10:30→22:07)
[2018-01-09] MEDS: ACETAMINOPHEN TAB 650MG DOSE (2X325MG) PO (13:26)
[2018-01-09] MEDS ORDERED: ISOVUE-300 61% 50ML VIAL (Q9967) As Ordered (16:20)
[2018-01-09] MEDS: ISOVUE-300 61% 50ML VIAL (Q9967) IV (18:18)
[2018-01-09] MEDS ORDERED: ONDANSETRON 4MG/2ML VIAL (J2405) IV (19:00)
[2018-01-09] MEDS: LR 1,000 ML IV (19:00)
[2018-01-09] MEDS ORDERED: fentaNYL 100 MCG/2 ML INJECTION (J3010) IV (19:00)
[2018-01-09] MEDS: RIVAROXABAN 15 MG TAB (XARELTO) PO (22:07)
[2018-01-09] MEDS: ATENOLOL 25 MG TAB PO (22:11)
[2018-01-10] MEDS: ACETAMINOPHEN TAB 650MG DOSE (2X325MG) PO ×2 (04:27→11:51)
[2018-01-10] MEDS: GABAPENTIN 100 MG CAP PO ×3 (05:41→21:21)
[2018-01-10] MEDS: CEFEPIME HCL 1 GM in D5W MINI-BAG PLUS 50 ML IV ×2 (05:41→16:12)
[2018-01-10] MEDS: traMADol 50 MG TAB PO ×2 (05:41→21:30)
[2018-01-10] MEDS: SLF 3 ML SYR IV ×3 (05:42→21:25)
[2018-01-10 06:31] LABS: HEMATOCRIT 32.2 % (42.0-52.0); HEMOGLOBIN 10.7 g/dl (14.0-18.0); MEAN CORPUSCULAR HEMOGLOBIN 30.7 pg (27.0-33.0); MEAN CORPUSCULAR HGB CONC 33.2 g/dl (32.0-36.5); MEAN CORPUSCULAR VOLUME 92.5 fl (80.0-96.0); PLATELET COUNT, AUTOMATED 286 10^3/uL (150-450); RED BLOOD COUNT 3.48 10^6/uL (4.30-6.10); WHITE BLOOD COUNT 10.6 10^3/uL (4.0-10.0)
[2018-01-10 06:52] LABS: ANION GAP 7 MEQ/L (8-16); BLOOD UREA NITROGEN 28 MG/DL (7-18); CALCIUM LEVEL 8.5 MG/DL (8.8-10.2); CARBON DIOXIDE LEVEL 29 MEQ/L (21-32); CHLORIDE LEVEL 99 MEQ/L (98-107); CREATININE FOR GFR 0.82 MG/DL (0.70-1.30); GLOMERULAR FILTRATION RATE > 60.0 (>35); GLUCOSE, FASTING 89 MG/DL (70-100); POTASSIUM SERUM 3.6 MEQ/L (3.5-5.1); SODIUM LEVEL 135 MEQ/L (136-145)
[2018-01-10] MEDS: BREO ELLIPTA 200-25MCG/INH (PATIENT'S OWN MED) INH (08:10)
[2018-01-10] MEDS: LANSOPRAZOLE SUSPENSION 30 MG/10 ML ORAL SYRINGE (FIRST-LANSOPRAZOLE) PO (08:24)
[2018-01-10] MEDS: SENOKOT S TAB PO ×3 (08:24→21:21)
[2018-01-10] MEDS: FUROSEMIDE 40 MG TAB PO (08:25)
[2018-01-10] MEDS: DOXYCYCLINE HYCLATE 100 MG TAB PO ×2 (08:25→21:22)
[2018-01-10] MEDS: EUCERIN 120GM CREAM TOP ×2 (08:26→21:22)
[2018-01-10] MEDS: DIAPER RELIEF PASTE (DESITIN) 60GM TOP (08:26)
[2018-01-10] MEDS: RIVAROXABAN 15 MG TAB (XARELTO) PO (16:11)
[2018-01-10] MEDS: ATENOLOL 25 MG TAB PO (21:22)
[2018-01-11] MEDS: ACETAMINOPHEN TAB 650MG DOSE (2X325MG) PO ×2 (01:54→20:45)
[2018-01-11] MEDS: CEFEPIME HCL 1 GM in D5W MINI-BAG PLUS 50 ML IV ×2 (04:26→17:24)
[2018-01-11] MEDS: GABAPENTIN 100 MG CAP PO ×3 (05:11→21:35)
[2018-01-11] MEDS: SLF 3 ML SYR IV ×3 (05:12→21:36)
[2018-01-11 06:11] LABS: HEMATOCRIT 32.5 % (42.0-52.0); HEMOGLOBIN 10.9 g/dl (14.0-18.0); MEAN CORPUSCULAR HEMOGLOBIN 30.5 pg (27.0-33.0); MEAN CORPUSCULAR HGB CONC 33.5 g/dl (32.0-36.5); PLATELET COUNT, AUTOMATED 329 10^3/uL (150-450); RED BLOOD COUNT 3.57 10^6/uL (4.30-6.10); WHITE BLOOD COUNT 10.5 10^3/uL (4.0-10.0)
[2018-01-11 06:32] LABS: ANION GAP 8 MEQ/L (8-16); BLOOD UREA NITROGEN 30 MG/DL (7-18); C REACTIVE PROTEIN QUANTITATIV 9.19 MG/DL (0.00-0.30); CALCIUM LEVEL 8.5 MG/DL (8.8-10.2); CARBON DIOXIDE LEVEL 29 MEQ/L (21-32); CHLORIDE LEVEL 100 MEQ/L (98-107); GLOMERULAR FILTRATION RATE > 60.0 (>35); GLUCOSE, FASTING 101 MG/DL (70-100); MAGNESIUM LEVEL 1.9 MG/DL (1.8-2.4); POTASSIUM SERUM 3.6 MEQ/L (3.5-5.1); SODIUM LEVEL 137 MEQ/L (136-145)
[2018-01-11] MEDS: BREO ELLIPTA 200-25MCG/INH (PATIENT'S OWN MED) INH (08:03)
[2018-01-11] MEDS: DOXYCYCLINE HYCLATE 100 MG TAB PO ×2 (08:25→21:35)
[2018-01-11] MEDS: SENOKOT S TAB PO ×2 (08:26→21:00)
[2018-01-11] MEDS: FUROSEMIDE 40 MG TAB PO (08:26)
[2018-01-11] MEDS: LANSOPRAZOLE SUSPENSION 30 MG/10 ML ORAL SYRINGE (FIRST-LANSOPRAZOLE) PO (08:27)
[2018-01-11] MEDS: EUCERIN 120GM CREAM TOP ×2 (08:27→21:36)
[2018-01-11] MEDS: DIAPER RELIEF PASTE (DESITIN) 60GM TOP (08:28)
[2018-01-11] MEDS: traMADol 50 MG TAB PO (12:37)
[2018-01-11] MEDS: RIVAROXABAN 15 MG TAB (XARELTO) PO (17:24)
[2018-01-11] MEDS: ATENOLOL 25 MG TAB PO (21:35)
[2018-01-12] MEDS: traMADol 50 MG TAB PO ×2 (00:53→12:01)
[2018-01-12] MEDS: CEFEPIME HCL 1 GM in D5W MINI-BAG PLUS 50 ML IV ×2 (04:58→16:59)
[2018-01-12] MEDS: GABAPENTIN 100 MG CAP PO ×3 (05:06→22:26)
[2018-01-12] MEDS: SLF 3 ML SYR IV ×3 (05:07→22:00)
[2018-01-12 05:22] LABS: HEMATOCRIT 35.6 % (42.0-52.0); HEMOGLOBIN 11.7 g/dl (14.0-18.0); MEAN CORPUSCULAR HEMOGLOBIN 30.5 pg (27.0-33.0); MEAN CORPUSCULAR HGB CONC 32.9 g/dl (32.0-36.5); PLATELET COUNT, AUTOMATED 345 10^3/uL (150-450); RED BLOOD COUNT 3.83 10^6/uL (4.30-6.10); RED CELL DISTRIBUTION WIDTH 14.8 % (11.5-14.5); WHITE BLOOD COUNT 10.5 10^3/uL (4.0-10.0)
[2018-01-12 05:42] LABS: ANION GAP 6 MEQ/L (8-16); BLOOD UREA NITROGEN 26 MG/DL (7-18); C REACTIVE PROTEIN QUANTITATIV 5.42 MG/DL (0.00-0.30); CALCIUM LEVEL 8.3 MG/DL (8.8-10.2); CARBON DIOXIDE LEVEL 30 MEQ/L (21-32); CHLORIDE LEVEL 101 MEQ/L (98-107); CREATININE FOR GFR 0.82 MG/DL (0.70-1.30); GLOMERULAR FILTRATION RATE > 60.0 (>35); GLUCOSE, FASTING 89 MG/DL (70-100); POTASSIUM SERUM 3.8 MEQ/L (3.5-5.1); SODIUM LEVEL 137 MEQ/L (136-145)
[2018-01-12] MEDS: ACETAMINOPHEN TAB 650MG DOSE (2X325MG) PO (06:44)
[2018-01-12] MEDS: BREO ELLIPTA 200-25MCG/INH (PATIENT'S OWN MED) INH (08:41)
[2018-01-12] MEDS: EUCERIN 120GM CREAM TOP ×2 (08:59→20:35)
[2018-01-12] MEDS: LANSOPRAZOLE SUSPENSION 30 MG/10 ML ORAL SYRINGE (FIRST-LANSOPRAZOLE) PO (08:59)
[2018-01-12] MEDS: SENOKOT S TAB PO ×2 (08:59→20:35)
[2018-01-12] MEDS: FUROSEMIDE 40 MG TAB PO (08:59)
[2018-01-12] MEDS: DOXYCYCLINE HYCLATE 100 MG TAB PO ×2 (08:59→20:35)
[2018-01-12] MEDS: DIAPER RELIEF PASTE (DESITIN) 60GM TOP (09:00)
[2018-01-12] MEDS: RIVAROXABAN 15 MG TAB (XARELTO) PO (16:58)
[2018-01-12] MEDS: ATENOLOL 25 MG TAB PO (17:25)
[2018-01-13] MEDS: CEFEPIME HCL 1 GM in D5W MINI-BAG PLUS 50 ML IV ×2 (04:31→17:32)
[2018-01-13 05:31] LABS: HEMATOCRIT 33.1 % (42.0-52.0); HEMOGLOBIN 10.8 g/dl (14.0-18.0); MEAN CORPUSCULAR HEMOGLOBIN 30.4 pg (27.0-33.0); MEAN CORPUSCULAR HGB CONC 32.6 g/dl (32.0-36.5); MEAN CORPUSCULAR VOLUME 93.2 fl (80.0-96.0); PLATELET COUNT, AUTOMATED 342 10^3/uL (150-450); RED BLOOD COUNT 3.55 10^6/uL (4.30-6.10); RED CELL DISTRIBUTION WIDTH 14.7 % (11.5-14.5); WHITE BLOOD COUNT 10.8 10^3/uL (4.0-10.0)
[2018-01-13] MEDS: SLF 3 ML SYR IV ×3 (05:32→21:26)
[2018-01-13] MEDS: GABAPENTIN 100 MG CAP PO ×3 (05:32→21:25)
[2018-01-13 05:48] LABS: ANION GAP 6 MEQ/L (8-16); BLOOD UREA NITROGEN 31 MG/DL (7-18); C REACTIVE PROTEIN QUANTITATIV 4.41 MG/DL (0.00-0.30); CALCIUM LEVEL 8.7 MG/DL (8.8-10.2); CARBON DIOXIDE LEVEL 30 MEQ/L (21-32); CHLORIDE LEVEL 99 MEQ/L (98-107); CREATININE FOR GFR 0.85 MG/DL (0.70-1.30); GLOMERULAR FILTRATION RATE > 60.0 (>35); GLUCOSE, FASTING 88 MG/DL (70-100); MAGNESIUM LEVEL 1.9 MG/DL (1.8-2.4); POTASSIUM SERUM 3.9 MEQ/L (3.5-5.1); SODIUM LEVEL 135 MEQ/L (136-145)
[2018-01-13] MEDS: SENOKOT S TAB PO ×3 (09:00→21:00)
[2018-01-13] MEDS: DIAPER RELIEF PASTE (DESITIN) 60GM TOP (09:00)
[2018-01-13] MEDS: LANSOPRAZOLE SUSPENSION 30 MG/10 ML ORAL SYRINGE (FIRST-LANSOPRAZOLE) PO (09:18)
[2018-01-13] MEDS: DOXYCYCLINE HYCLATE 100 MG TAB PO ×2 (09:18→21:25)
[2018-01-13] MEDS: FUROSEMIDE 40 MG TAB PO (09:18)
[2018-01-13] MEDS: EUCERIN 120GM CREAM TOP ×2 (09:19→21:26)
[2018-01-13] MEDS: traMADol 50 MG TAB PO (09:51)
[2018-01-13] MEDS: BREO ELLIPTA 200-25MCG/INH (PATIENT'S OWN MED) INH (09:51)
[2018-01-13 12:05] LABS: ABG BASE EXCESS 3.4 (-2.0-2.0); ABG HCO3 26.9 MEQ/L (22.0-26.0); ABG PARTIAL PRESSURE CO2 37.2 mmHg (35.0-45.0); ABG STANDARD HCO3 27.4 MEQ/L (22.0-26.0); ABG pH (ARTERIAL) 7.477 UNITS (7.350-7.450)
[2018-01-13] MEDS: RIVAROXABAN 15 MG TAB (XARELTO) PO (17:31)
[2018-01-13] MEDS: ATENOLOL 25 MG TAB PO (21:25)
[2018-01-14] MEDS: traMADol 50 MG TAB PO ×3 (03:52→21:36)
[2018-01-14 05:33] LABS: HEMATOCRIT 35.2 % (42.0-52.0); HEMOGLOBIN 11.6 g/dl (14.0-18.0); MEAN CORPUSCULAR HEMOGLOBIN 30.8 pg (27.0-33.0); MEAN CORPUSCULAR VOLUME 93.4 fl (80.0-96.0); PLATELET COUNT, AUTOMATED 383 10^3/uL (150-450); RED BLOOD COUNT 3.77 10^6/uL (4.30-6.10); RED CELL DISTRIBUTION WIDTH 14.7 % (11.5-14.5); WHITE BLOOD COUNT 11.3 10^3/uL (4.0-10.0)
[2018-01-14 05:58] LABS: ANION GAP 5 MEQ/L (8-16); BLOOD UREA NITROGEN 29 MG/DL (7-18); C REACTIVE PROTEIN QUANTITATIV 4.08 MG/DL (0.00-0.30); CARBON DIOXIDE LEVEL 31 MEQ/L (21-32); CHLORIDE LEVEL 100 MEQ/L (98-107); CREATININE FOR GFR 0.94 MG/DL (0.70-1.30); GLOMERULAR FILTRATION RATE > 60.0 (>35); GLUCOSE, FASTING 89 MG/DL (70-100); SODIUM LEVEL 136 MEQ/L (136-145)
[2018-01-14] MEDS: SLF 3 ML SYR IV ×3 (06:00→21:37)
[2018-01-14] MEDS: GABAPENTIN 100 MG CAP PO ×3 (06:03→21:36)
[2018-01-14] MEDS: CEFEPIME HCL 1 GM in D5W MINI-BAG PLUS 50 ML IV ×2 (06:04→16:54)
[2018-01-14] MEDS: BREO ELLIPTA 200-25MCG/INH (PATIENT'S OWN MED) INH (07:28)
[2018-01-14] MEDS: DIAPER RELIEF PASTE (DESITIN) 60GM TOP (09:00)
[2018-01-14] MEDS: EUCERIN 120GM CREAM TOP ×2 (09:00→21:35)
[2018-01-14] MEDS: FUROSEMIDE 40 MG TAB PO (09:15)
[2018-01-14] MEDS: LANSOPRAZOLE SUSPENSION 30 MG/10 ML ORAL SYRINGE (FIRST-LANSOPRAZOLE) PO (09:15)
[2018-01-14] MEDS: SENOKOT S TAB PO ×2 (09:15→20:26)
[2018-01-14] MEDS: DOXYCYCLINE HYCLATE 100 MG TAB PO ×2 (09:15→21:36)
[2018-01-14] MEDS: ACETAMINOPHEN TAB 650MG DOSE (2X325MG) PO (14:17)
[2018-01-14] MEDS: RIVAROXABAN 15 MG TAB (XARELTO) PO (18:05)
[2018-01-14] MEDS: ATENOLOL 25 MG TAB PO (21:36)
[2018-01-15] MEDS: SLF 3 ML SYR IV ×4 (05:23→22:00)
[2018-01-15] MEDS: GABAPENTIN 100 MG CAP PO ×3 (05:23→22:03)
[2018-01-15] MEDS: CEFEPIME HCL 1 GM in D5W MINI-BAG PLUS 50 ML IV ×2 (05:24→17:22)
[2018-01-15 05:35] LABS: HEMATOCRIT 34.8 % (42.0-52.0); HEMOGLOBIN 11.3 g/dl (14.0-18.0); MEAN CORPUSCULAR HEMOGLOBIN 29.9 pg (27.0-33.0); MEAN CORPUSCULAR HGB CONC 32.5 g/dl (32.0-36.5); MEAN CORPUSCULAR VOLUME 92.1 fl (80.0-96.0); PLATELET COUNT, AUTOMATED 388 10^3/uL (150-450); RED BLOOD COUNT 3.78 10^6/uL (4.30-6.10); RED CELL DISTRIBUTION WIDTH 14.6 % (11.5-14.5); WHITE BLOOD COUNT 11.7 10^3/uL (4.0-10.0)
[2018-01-15 05:59] LABS: ANION GAP 7 MEQ/L (8-16); BLOOD UREA NITROGEN 28 MG/DL (7-18); CALCIUM LEVEL 8.6 MG/DL (8.8-10.2); CARBON DIOXIDE LEVEL 30 MEQ/L (21-32); CHLORIDE LEVEL 99 MEQ/L (98-107); CREATININE FOR GFR 0.87 MG/DL (0.70-1.30); GLOMERULAR FILTRATION RATE > 60.0 (>35); GLUCOSE, FASTING 84 MG/DL (70-100); MAGNESIUM LEVEL 1.9 MG/DL (1.8-2.4); POTASSIUM SERUM 4.1 MEQ/L (3.5-5.1); SODIUM LEVEL 136 MEQ/L (136-145)
[2018-01-15] MEDS: BREO ELLIPTA 200-25MCG/INH (PATIENT'S OWN MED) INH (08:45)
[2018-01-15] MEDS: SENOKOT S TAB PO ×2 (09:00→20:52)
[2018-01-15] MEDS: FUROSEMIDE 40 MG TAB PO (10:23)
[2018-01-15] MEDS: EUCERIN 120GM CREAM TOP ×2 (10:23→22:02)
[2018-01-15] MEDS: LANSOPRAZOLE SUSPENSION 30 MG/10 ML ORAL SYRINGE (FIRST-LANSOPRAZOLE) PO (10:23)
[2018-01-15] MEDS: DIAPER RELIEF PASTE (DESITIN) 60GM TOP (10:25)
[2018-01-15] MEDS: ACETAMINOPHEN TAB 650MG DOSE (2X325MG) PO (11:50)
[2018-01-15] MEDS ORDERED: traMADol 50 MG TAB PO (13:45)
[2018-01-15] MEDS: RIVAROXABAN 15 MG TAB (XARELTO) PO (17:21)
[2018-01-15] MEDS: ATENOLOL 25 MG TAB PO (22:03)
[2018-01-15] MEDS: traMADol 50 MG TAB PO (22:06)
[2018-01-16 05:37] LABS: HEMATOCRIT 34.3 % (42.0-52.0); HEMOGLOBIN 11.4 g/dl (14.0-18.0); MEAN CORPUSCULAR HEMOGLOBIN 30.3 pg (27.0-33.0); MEAN CORPUSCULAR HGB CONC 33.2 g/dl (32.0-36.5); MEAN CORPUSCULAR VOLUME 91.2 fl (80.0-96.0); PLATELET COUNT, AUTOMATED 408 10^3/uL (150-450); RED BLOOD COUNT 3.76 10^6/uL (4.30-6.10); RED CELL DISTRIBUTION WIDTH 14.6 % (11.5-14.5); WHITE BLOOD COUNT 11.2 10^3/uL (4.0-10.0)
[2018-01-16] MEDS: GABAPENTIN 100 MG CAP PO ×3 (05:39→21:26)
[2018-01-16] MEDS: SLF 3 ML SYR IV ×3 (05:39→21:27)
[2018-01-16] MEDS: CEFEPIME HCL 1 GM in D5W MINI-BAG PLUS 50 ML IV ×2 (05:39→17:28)
[2018-01-16 05:45] LABS: ANION GAP 7 MEQ/L (8-16); BLOOD UREA NITROGEN 29 MG/DL (7-18); CALCIUM LEVEL 8.8 MG/DL (8.8-10.2); CARBON DIOXIDE LEVEL 28 MEQ/L (21-32); CHLORIDE LEVEL 100 MEQ/L (98-107); GLOMERULAR FILTRATION RATE > 60.0 (>35); GLUCOSE, FASTING 89 MG/DL (70-100); POTASSIUM SERUM 4.1 MEQ/L (3.5-5.1); SODIUM LEVEL 135 MEQ/L (136-145)
[2018-01-16] MEDS ORDERED: MIDAZOLAM INJ 2 MG/2 ML VIAL (J2250) As Ordered (06:20)
[2018-01-16] MEDS ORDERED: HEPARIN 1,000 UNITS/ML 10ML VIAL (FOR RADIOLOGY& DIALYSIS ONLY) As Ordered (06:20)
[2018-01-16] MEDS ORDERED: fentaNYL 100 MCG/2 ML INJECTION (J3010) As Ordered (06:20)
[2018-01-16] MEDS ORDERED: PROTAMINE SULF INJ 50 MG/5 ML VIAL (J2720) As Ordered (06:20)
[2018-01-16] MEDS ORDERED: ISOVUE-300 61% 50ML VIAL (Q9967) As Ordered (06:21)
[2018-01-16] MEDS: DIAPER RELIEF PASTE (DESITIN) 60GM TOP (09:00)
[2018-01-16] MEDS: BREO ELLIPTA 200-25MCG/INH (PATIENT'S OWN MED) INH (10:01)
[2018-01-16] MEDS: SENOKOT S TAB PO ×2 (10:09→21:26)
[2018-01-16] MEDS: FUROSEMIDE 40 MG TAB PO (10:10)
[2018-01-16] MEDS: traMADol 50 MG TAB PO (10:10)
[2018-01-16] MEDS: LANSOPRAZOLE SUSPENSION 30 MG/10 ML ORAL SYRINGE (FIRST-LANSOPRAZOLE) PO (10:11)
[2018-01-16] MEDS: EUCERIN 120GM CREAM TOP ×2 (10:14→21:27)
[2018-01-16] MEDS: oxyCODONE 5MG TAB PO (17:28)
[2018-01-16] MEDS: RIVAROXABAN 15 MG TAB (XARELTO) PO (17:28)
[2018-01-16] MEDS: ATENOLOL 25 MG TAB PO (21:27)
[2018-01-17 04:14] LABS: HEMATOCRIT 35.3 % (42.0-52.0); HEMOGLOBIN 11.6 g/dl (14.0-18.0); MEAN CORPUSCULAR HEMOGLOBIN 30.4 pg (27.0-33.0); MEAN CORPUSCULAR HGB CONC 32.9 g/dl (32.0-36.5); MEAN CORPUSCULAR VOLUME 92.7 fl (80.0-96.0); PLATELET COUNT, AUTOMATED 372 10^3/uL (150-450); RED BLOOD COUNT 3.81 10^6/uL (4.30-6.10); RED CELL DISTRIBUTION WIDTH 14.6 % (11.5-14.5); WHITE BLOOD COUNT 14.3 10^3/uL (4.0-10.0)
[2018-01-17 04:38] LABS: ANION GAP 8 MEQ/L (8-16); BLOOD UREA NITROGEN 30 MG/DL (7-18); CALCIUM LEVEL 8.9 MG/DL (8.8-10.2); CARBON DIOXIDE LEVEL 29 MEQ/L (21-32); CHLORIDE LEVEL 100 MEQ/L (98-107); CREATININE FOR GFR 1.04 MG/DL (0.70-1.30); GLOMERULAR FILTRATION RATE > 60.0 (>35); GLUCOSE, FASTING 101 MG/DL (70-100); POTASSIUM SERUM 3.8 MEQ/L (3.5-5.1); SODIUM LEVEL 137 MEQ/L (136-145)
[2018-01-17] MEDS: GABAPENTIN 100 MG CAP PO ×3 (05:42→21:32)
[2018-01-17] MEDS: CEFEPIME HCL 1 GM in D5W MINI-BAG PLUS 50 ML IV ×2 (05:42→16:11)
[2018-01-17] MEDS: SLF 3 ML SYR IV ×3 (05:42→21:33)
[2018-01-17] MEDS: BREO ELLIPTA 200-25MCG/INH (PATIENT'S OWN MED) INH (08:34)
[2018-01-17 08:38] LABS: C REACTIVE PROTEIN QUANTITATIV 7.96 MG/DL (0.00-0.30)
[2018-01-17] MEDS: traMADol 50 MG TAB PO (08:58)
[2018-01-17] MEDS: DIAPER RELIEF PASTE (DESITIN) 60GM TOP (08:58)
[2018-01-17] MEDS: FUROSEMIDE 40 MG TAB PO (08:58)
[2018-01-17] MEDS: EUCERIN 120GM CREAM TOP ×2 (08:59→21:33)
[2018-01-17] MEDS: SENOKOT S TAB PO ×2 (08:59→21:32)
[2018-01-17] MEDS: LANSOPRAZOLE SUSPENSION 30 MG/10 ML ORAL SYRINGE (FIRST-LANSOPRAZOLE) PO (08:59)
[2018-01-17 11:13] LABS: APPEARANCE, URINE HAZY (CLEAR); BACTERIA, URINE AUTO NEGATIVE (NEGATIVE); BILIRUBIN, URINE AUTO NEGATIVE (NEGATIVE); BLOOD, URINE BLOOD 3+ (NEGATIVE); COLOR, URINE YELLOW (YELLOW); GLUCOSE, URINE (UA) AUTO NEGATIVE (NEGATIVE); KETONE, URINE AUTO TRACE mg/dL (NEGATIVE); LEUKOCYTE ESTERASE, URINE AUTO NEGATIVE (NEGATIVE); MUCUS, URINE SMALL (NEGATIVE); NITRITE, URINE AUTO NEGATIVE (NEGATIVE); PROTEIN, URINE AUTO 1+ mg/dL (NEGATIVE); RBC, URINE AUTO 55 /HPF (0-3); SPECIFIC GRAVITY URINE AUTO 1.021 (1.002-1.035); SQUAMOUS EPITHELIAL CELL UR AU 0 /HPF (0-6); UROBILINOGEN, URINE AUTO 0.2 mg/dL (0.0-2.0); WBC, URINE AUTO 1 /HPF (0-3)
[2018-01-17] MEDS: RIVAROXABAN 15 MG TAB (XARELTO) PO (16:11)
[2018-01-17] MEDS: oxyCODONE 5MG TAB PO (16:12)
[2018-01-17] MEDS: ATENOLOL 25 MG TAB PO (21:32)
[2018-01-18] MEDS: oxyCODONE 5MG TAB PO (03:35)
[2018-01-18 04:37] LABS: HEMATOCRIT 33.9 % (42.0-52.0); HEMOGLOBIN 11.1 g/dl (14.0-18.0); MEAN CORPUSCULAR HEMOGLOBIN 30.1 pg (27.0-33.0); MEAN CORPUSCULAR HGB CONC 32.7 g/dl (32.0-36.5); MEAN CORPUSCULAR VOLUME 91.9 fl (80.0-96.0); PLATELET COUNT, AUTOMATED 373 10^3/uL (150-450); RED BLOOD COUNT 3.69 10^6/uL (4.30-6.10); RED CELL DISTRIBUTION WIDTH 14.6 % (11.5-14.5); WHITE BLOOD COUNT 17.5 10^3/uL (4.0-10.0)
[2018-01-18 04:53] LABS: ANION GAP 8 MEQ/L (8-16); BLOOD UREA NITROGEN 30 MG/DL (7-18); CARBON DIOXIDE LEVEL 28 MEQ/L (21-32); CHLORIDE LEVEL 99 MEQ/L (98-107); GLOMERULAR FILTRATION RATE > 60.0 (>35); GLUCOSE, FASTING 106 MG/DL (70-100); POTASSIUM SERUM 3.6 MEQ/L (3.5-5.1); SODIUM LEVEL 135 MEQ/L (136-145)
[2018-01-18] MEDS: CEFEPIME HCL 1 GM in D5W MINI-BAG PLUS 50 ML IV ×2 (05:44→17:28)
[2018-01-18] MEDS: GABAPENTIN 100 MG CAP PO ×3 (05:44→21:27)
[2018-01-18] MEDS: SLF 3 ML SYR IV ×3 (05:44→21:28)
[2018-01-18] MEDS: DIAPER RELIEF PASTE (DESITIN) 60GM TOP (07:12)
[2018-01-18 07:38] LABS: BASO # 0.1 10^3/uL (0.0-0.2); BASO % 0.5 % (0.0-1.0); EOS % 0.2 % (0.0-3.0); IMMATURE GRANULOCYTE # 0.3 10^3/uL (0-0); IMMATURE GRANULOCYTE % 1.9 % (0-3.0); LYMPH # 0.8 10^3/uL (1.5-4.5); LYMPH % 4.3 % (24.0-44.0); MONO % 14.4 % (0.0-5.0); NEUTROPHILS # 13.8 10^3/uL (1.8-7.7); NEUTROPHILS % 78.7 % (36.0-66.0)
[2018-01-18] MEDS: BREO ELLIPTA 200-25MCG/INH (PATIENT'S OWN MED) INH (07:42)
[2018-01-18 07:46] LABS: MAGNESIUM LEVEL 2.1 MG/DL (1.8-2.4)
[2018-01-18 08:13] LABS: MONO # 2.5 10^3/uL (0.0-0.8); POSITIVE DIFF POS FLAG
[2018-01-18] MEDS: EUCERIN 120GM CREAM TOP ×2 (08:54→21:28)
[2018-01-18] MEDS: SENOKOT S TAB PO ×3 (08:54→21:00)
[2018-01-18] MEDS: FUROSEMIDE 40 MG TAB PO (08:54)
[2018-01-18] MEDS: LANSOPRAZOLE SUSPENSION 30 MG/10 ML ORAL SYRINGE (FIRST-LANSOPRAZOLE) PO (08:54)
[2018-01-18 08:55] LABS: DIFF SLIDE NUMBER 16
[2018-01-18] MEDS: VANCOMYCIN HCL 1,000 MG, VIAL MATE ADAPTER 1 EACH in D5W 250 ML IV (09:43)
[2018-01-18] MEDS: RIVAROXABAN 15 MG TAB (XARELTO) PO (17:28)
[2018-01-18] MEDS: ATENOLOL 25 MG TAB PO (21:28)
[2018-01-18] MEDS: traMADol 50 MG TAB PO (23:31)
[2018-01-19] MEDS: VANCOMYCIN HCL 1,000 MG, VIAL MATE ADAPTER 1 EACH in D5W 250 ML IV ×2 (03:42→21:12)
[2018-01-19] MEDS: GABAPENTIN 100 MG CAP PO ×3 (05:16→21:10)
[2018-01-19] MEDS: CEFEPIME HCL 1 GM in D5W MINI-BAG PLUS 50 ML IV ×2 (05:17→17:02)
[2018-01-19] MEDS: SLF 3 ML SYR IV ×3 (05:17→21:12)
[2018-01-19 05:20] LABS: HEMATOCRIT 30.8 % (42.0-52.0); HEMOGLOBIN 10.2 g/dl (14.0-18.0); MEAN CORPUSCULAR HEMOGLOBIN 30.4 pg (27.0-33.0); MEAN CORPUSCULAR HGB CONC 33.1 g/dl (32.0-36.5); MEAN CORPUSCULAR VOLUME 91.7 fl (80.0-96.0); PLATELET COUNT, AUTOMATED 323 10^3/uL (150-450); RED BLOOD COUNT 3.36 10^6/uL (4.30-6.10); RED CELL DISTRIBUTION WIDTH 14.6 % (11.5-14.5); WHITE BLOOD COUNT 13.9 10^3/uL (4.0-10.0)
[2018-01-19 05:43] LABS: ANION GAP 6 MEQ/L (8-16); BLOOD UREA NITROGEN 28 MG/DL (7-18); CALCIUM LEVEL 8.3 MG/DL (8.8-10.2); CARBON DIOXIDE LEVEL 30 MEQ/L (21-32); CHLORIDE LEVEL 99 MEQ/L (98-107); CREATININE FOR GFR 0.88 MG/DL (0.70-1.30); GLOMERULAR FILTRATION RATE > 60.0 (>35); GLUCOSE, FASTING 146 MG/DL (70-100); POTASSIUM SERUM 3.3 MEQ/L (3.5-5.1); SODIUM LEVEL 135 MEQ/L (136-145)
[2018-01-19] MEDS: SENOKOT S TAB PO ×3 (09:00→13:06)
[2018-01-19] MEDS: BREO ELLIPTA 200-25MCG/INH (PATIENT'S OWN MED) INH (09:17)
[2018-01-19] MEDS: LANSOPRAZOLE SUSPENSION 30 MG/10 ML ORAL SYRINGE (FIRST-LANSOPRAZOLE) PO (09:32)
[2018-01-19] MEDS: FUROSEMIDE 40 MG TAB PO (09:33)
[2018-01-19] MEDS: POTASSIUM CHLORIDE 10 MEQ SR TABLET PO (09:33)
[2018-01-19] MEDS: D5W IV (09:36)
[2018-01-19] MEDS: POTASSIUM CHLORIDE IV (09:36)
[2018-01-19] MEDS: EUCERIN 120GM CREAM TOP ×2 (09:44→21:10)
[2018-01-19] MEDS: DIAPER RELIEF PASTE (DESITIN) 60GM TOP (09:44)
[2018-01-19] MEDS: oxyCODONE 5MG TAB PO (15:36)
[2018-01-19] MEDS: RIVAROXABAN 15 MG TAB (XARELTO) PO (17:01)
[2018-01-19] MEDS: ATENOLOL 25 MG TAB PO (21:12)
[2018-01-20 05:18] LABS: HEMATOCRIT 32.3 % (42.0-52.0); HEMOGLOBIN 10.6 g/dl (14.0-18.0); MEAN CORPUSCULAR HGB CONC 32.8 g/dl (32.0-36.5); MEAN CORPUSCULAR VOLUME 91.5 fl (80.0-96.0); PLATELET COUNT, AUTOMATED 345 10^3/uL (150-450); RED BLOOD COUNT 3.53 10^6/uL (4.30-6.10); RED CELL DISTRIBUTION WIDTH 14.3 % (11.5-14.5); WHITE BLOOD COUNT 12.1 10^3/uL (4.0-10.0)
[2018-01-20] MEDS: GABAPENTIN 100 MG CAP PO ×3 (05:24→21:49)
[2018-01-20] MEDS: SLF 3 ML SYR IV ×3 (05:25→21:52)
[2018-01-20] MEDS: CEFEPIME HCL 1 GM in D5W MINI-BAG PLUS 50 ML IV (05:25)
[2018-01-20 05:44] LABS: ANION GAP 8 MEQ/L (8-16); BLOOD UREA NITROGEN 28 MG/DL (7-18); CALCIUM LEVEL 8.6 MG/DL (8.8-10.2); CARBON DIOXIDE LEVEL 31 MEQ/L (21-32); CHLORIDE LEVEL 103 MEQ/L (98-107); CREATININE FOR GFR 1.01 MG/DL (0.70-1.30); GLOMERULAR FILTRATION RATE > 60.0 (>35); GLUCOSE, FASTING 90 MG/DL (70-100); SODIUM LEVEL 142 MEQ/L (136-145)
[2018-01-20] MEDS: BREO ELLIPTA 200-25MCG/INH (PATIENT'S OWN MED) INH (08:03)
[2018-01-20] MEDS: LANSOPRAZOLE SUSPENSION 30 MG/10 ML ORAL SYRINGE (FIRST-LANSOPRAZOLE) PO (08:53)
[2018-01-20] MEDS: FUROSEMIDE 40 MG TAB PO (08:53)
[2018-01-20] MEDS: SENOKOT S TAB PO ×3 (08:53→21:00)
[2018-01-20] MEDS: POTASSIUM CHLORIDE 10 MEQ SR TABLET PO (08:54)
[2018-01-20] MEDS: DIAPER RELIEF PASTE (DESITIN) 60GM TOP (09:01)
[2018-01-20] MEDS: EUCERIN 120GM CREAM TOP ×2 (09:01→21:49)
[2018-01-20] MEDS: RIVAROXABAN 15 MG TAB (XARELTO) PO (16:50)
[2018-01-20] MEDS: ATENOLOL 25 MG TAB PO (21:48)
[2018-01-20] MEDS: ACETAMINOPHEN TAB 650MG DOSE (2X325MG) PO (21:50)
[2018-01-21] MEDS: GABAPENTIN 100 MG CAP PO ×3 (05:59→21:02)
[2018-01-21] MEDS: SLF 3 ML SYR IV ×3 (05:59→21:02)
[2018-01-21 07:05] LABS: HEMATOCRIT 32.5 % (42.0-52.0); HEMOGLOBIN 10.7 g/dl (14.0-18.0); MEAN CORPUSCULAR HEMOGLOBIN 30.5 pg (27.0-33.0); MEAN CORPUSCULAR HGB CONC 32.9 g/dl (32.0-36.5); MEAN CORPUSCULAR VOLUME 92.6 fl (80.0-96.0); PLATELET COUNT, AUTOMATED 312 10^3/uL (150-450); RED BLOOD COUNT 3.51 10^6/uL (4.30-6.10); WHITE BLOOD COUNT 11.4 10^3/uL (4.0-10.0)
[2018-01-21 07:30] LABS: ANION GAP 7 MEQ/L (8-16); BLOOD UREA NITROGEN 32 MG/DL (7-18); CALCIUM LEVEL 8.6 MG/DL (8.8-10.2); CARBON DIOXIDE LEVEL 27 MEQ/L (21-32); CHLORIDE LEVEL 100 MEQ/L (98-107); CREATININE FOR GFR 1.13 MG/DL (0.70-1.30); GLOMERULAR FILTRATION RATE > 60.0 (>35); GLUCOSE, FASTING 82 MG/DL (70-100); SODIUM LEVEL 134 MEQ/L (136-145)
[2018-01-21] MEDS: SANTYL OINT 30GM TOP (09:00)
[2018-01-21] MEDS: SENOKOT S TAB PO ×2 (09:00→21:00)
[2018-01-21] MEDS: BREO ELLIPTA 200-25MCG/INH (PATIENT'S OWN MED) INH (09:12)
[2018-01-21] MEDS: DIAPER RELIEF PASTE (DESITIN) 60GM TOP (09:32)
[2018-01-21] MEDS: LANSOPRAZOLE SUSPENSION 30 MG/10 ML ORAL SYRINGE (FIRST-LANSOPRAZOLE) PO (09:32)
[2018-01-21] MEDS: EUCERIN 120GM CREAM TOP ×2 (09:32→21:03)
[2018-01-21] MEDS: FUROSEMIDE 40 MG TAB PO (09:33)
[2018-01-21] MEDS: POTASSIUM CHLORIDE 10 MEQ SR TABLET PO (09:33)
[2018-01-21] MEDS: ACETAMINOPHEN TAB 650MG DOSE (2X325MG) PO ×2 (09:40→16:27)
[2018-01-21] MEDS: RIVAROXABAN 15 MG TAB (XARELTO) PO (16:27)
[2018-01-21] MEDS: ATENOLOL 25 MG TAB PO (21:02)
[2018-01-22] MEDS: ACETAMINOPHEN TAB 650MG DOSE (2X325MG) PO (00:13)
[2018-01-22] MEDS: traMADol 50 MG TAB PO (03:13)
[2018-01-22 05:33] LABS: HEMATOCRIT 31.3 % (42.0-52.0); HEMOGLOBIN 10.4 g/dl (14.0-18.0); MEAN CORPUSCULAR HEMOGLOBIN 29.9 pg (27.0-33.0); MEAN CORPUSCULAR HGB CONC 33.2 g/dl (32.0-36.5); MEAN CORPUSCULAR VOLUME 89.9 fl (80.0-96.0); PLATELET COUNT, AUTOMATED 354 10^3/uL (150-450); RED BLOOD COUNT 3.48 10^6/uL (4.30-6.10); RED CELL DISTRIBUTION WIDTH 13.9 % (11.5-14.5)
[2018-01-22 05:47] LABS: ANION GAP 6 MEQ/L (8-16); BLOOD UREA NITROGEN 32 MG/DL (7-18); CALCIUM LEVEL 8.5 MG/DL (8.8-10.2); CARBON DIOXIDE LEVEL 27 MEQ/L (21-32); CHLORIDE LEVEL 101 MEQ/L (98-107); CREATININE FOR GFR 1.16 MG/DL (0.70-1.30); GLOMERULAR FILTRATION RATE > 60.0 (>35); GLUCOSE, FASTING 93 MG/DL (70-100); MAGNESIUM LEVEL 2.1 MG/DL (1.8-2.4); POTASSIUM SERUM 4.1 MEQ/L (3.5-5.1); SODIUM LEVEL 134 MEQ/L (136-145)
[2018-01-22] MEDS: GABAPENTIN 100 MG CAP PO ×3 (06:08→21:38)
[2018-01-22] MEDS: SLF 3 ML SYR IV ×3 (06:09→21:39)
[2018-01-22] MEDS: BREO ELLIPTA 200-25MCG/INH (PATIENT'S OWN MED) INH (07:17)
[2018-01-22] MEDS: FUROSEMIDE 40 MG TAB PO (09:58)
[2018-01-22] MEDS: SANTYL OINT 30GM TOP (09:58)
[2018-01-22] MEDS: LANSOPRAZOLE SUSPENSION 30 MG/10 ML ORAL SYRINGE (FIRST-LANSOPRAZOLE) PO (09:58)
[2018-01-22] MEDS: SENOKOT S TAB PO ×2 (09:58→21:00)
[2018-01-22] MEDS: POTASSIUM CHLORIDE 10 MEQ SR TABLET PO (09:59)
[2018-01-22] MEDS: EUCERIN 120GM CREAM TOP ×2 (09:59→21:38)
[2018-01-22] MEDS: DIAPER RELIEF PASTE (DESITIN) 60GM TOP (10:19)
[2018-01-22] MEDS: ATENOLOL 25 MG TAB PO (21:38)
[2018-01-23] MEDS: SLF 3 ML SYR IV ×3 (05:38→21:23)
[2018-01-23] MEDS: GABAPENTIN 100 MG CAP PO ×3 (05:38→21:23)
[2018-01-23 05:49] LABS: HEMATOCRIT 32.2 % (42.0-52.0); HEMOGLOBIN 10.5 g/dl (14.0-18.0); MEAN CORPUSCULAR HEMOGLOBIN 30.1 pg (27.0-33.0); MEAN CORPUSCULAR HGB CONC 32.6 g/dl (32.0-36.5); MEAN CORPUSCULAR VOLUME 92.3 fl (80.0-96.0); PLATELET COUNT, AUTOMATED 357 10^3/uL (150-450); RED BLOOD COUNT 3.49 10^6/uL (4.30-6.10); RED CELL DISTRIBUTION WIDTH 14.2 % (11.5-14.5); WHITE BLOOD COUNT 12.7 10^3/uL (4.0-10.0)
[2018-01-23 06:14] LABS: ANION GAP 8 MEQ/L (8-16); BLOOD UREA NITROGEN 30 MG/DL (7-18); CALCIUM LEVEL 8.7 MG/DL (8.8-10.2); CARBON DIOXIDE LEVEL 27 MEQ/L (21-32); CHLORIDE LEVEL 101 MEQ/L (98-107); CREATININE FOR GFR 1.28 MG/DL (0.70-1.30); GLOMERULAR FILTRATION RATE 56.3 (>35); GLUCOSE, FASTING 99 MG/DL (70-100); MAGNESIUM LEVEL 2.1 MG/DL (1.8-2.4); POTASSIUM SERUM 4.4 MEQ/L (3.5-5.1); SODIUM LEVEL 136 MEQ/L (136-145)
[2018-01-23] MEDS: BREO ELLIPTA 200-25MCG/INH (PATIENT'S OWN MED) INH (07:37)
[2018-01-23] MEDS: LANSOPRAZOLE SUSPENSION 30 MG/10 ML ORAL SYRINGE (FIRST-LANSOPRAZOLE) PO (08:42)
[2018-01-23] MEDS: SENOKOT S TAB PO ×3 (08:42→21:23)
[2018-01-23] MEDS: FUROSEMIDE 40 MG TAB PO (08:42)
[2018-01-23] MEDS: POTASSIUM CHLORIDE 10 MEQ SR TABLET PO (08:42)
[2018-01-23] MEDS: EUCERIN 120GM CREAM TOP ×2 (08:43→21:23)
[2018-01-23] MEDS: SANTYL OINT 30GM TOP (08:43)
[2018-01-23] MEDS: DIAPER RELIEF PASTE (DESITIN) 60GM TOP (08:44)
[2018-01-23] MEDS: ATENOLOL 25 MG TAB PO (21:22)
[2018-01-23] MEDS: traMADol 50 MG TAB PO (22:34)
[2018-01-24 03:55] LABS: HEMATOCRIT 31.8 % (42.0-52.0); HEMOGLOBIN 10.5 g/dl (14.0-18.0); MEAN CORPUSCULAR HEMOGLOBIN 30.6 pg (27.0-33.0); MEAN CORPUSCULAR VOLUME 92.7 fl (80.0-96.0); PLATELET COUNT, AUTOMATED 329 10^3/uL (150-450); RED BLOOD COUNT 3.43 10^6/uL (4.30-6.10); RED CELL DISTRIBUTION WIDTH 14.1 % (11.5-14.5); WHITE BLOOD COUNT 9.6 10^3/uL (4.0-10.0)
[2018-01-24] MEDS: ACETAMINOPHEN TAB 650MG DOSE (2X325MG) PO ×2 (03:56→22:13)
[2018-01-24 04:20] LABS: ANION GAP 5 MEQ/L (8-16); BLOOD UREA NITROGEN 32 MG/DL (7-18); CALCIUM LEVEL 9.1 MG/DL (8.8-10.2); CARBON DIOXIDE LEVEL 31 MEQ/L (21-32); CHLORIDE LEVEL 103 MEQ/L (98-107); CREATININE FOR GFR 1.14 MG/DL (0.70-1.30); GLOMERULAR FILTRATION RATE > 60.0 (>35); GLUCOSE, FASTING 87 MG/DL (70-100); MAGNESIUM LEVEL 2.2 MG/DL (1.8-2.4); POTASSIUM SERUM 4.7 MEQ/L (3.5-5.1); SODIUM LEVEL 139 MEQ/L (136-145)
[2018-01-24] MEDS: SLF 3 ML SYR IV ×3 (06:20→21:04)
[2018-01-24] MEDS: GABAPENTIN 100 MG CAP PO ×3 (06:20→21:05)
[2018-01-24] MEDS: BREO ELLIPTA 200-25MCG/INH (PATIENT'S OWN MED) INH (08:44)
[2018-01-24] MEDS: DIAPER RELIEF PASTE (DESITIN) 60GM TOP (09:00)
[2018-01-24] MEDS: LANSOPRAZOLE SUSPENSION 30 MG/10 ML ORAL SYRINGE (FIRST-LANSOPRAZOLE) PO (09:00)
[2018-01-24] MEDS: SENOKOT S TAB PO ×2 (09:00→21:00)
[2018-01-24] MEDS: POTASSIUM CHLORIDE 10 MEQ SR TABLET PO (09:00)
[2018-01-24] MEDS: FUROSEMIDE 40 MG TAB PO (09:00)
[2018-01-24] MEDS: EUCERIN 120GM CREAM TOP ×2 (10:02→21:06)
[2018-01-24] MEDS: SANTYL OINT 30GM TOP (10:03)
[2018-01-24] MEDS ORDERED: PROPOFOL 200 MG/20 ML VIAL As Ordered (10:46)
[2018-01-24] MEDS ORDERED: MIDAZOLAM INJ 2 MG/2 ML VIAL (J2250) As Ordered (10:46)
[2018-01-24] MEDS ORDERED: LIDOCAINE 2% INJ 100 MG/5 ML SDV (FOR ANES.) As Ordered (10:46)
[2018-01-24] MEDS ORDERED: fentaNYL 100 MCG/2 ML INJECTION (J3010) As Ordered (10:47)
[2018-01-24] MEDS ORDERED: ceFAZolin 1GM INJ (J0690 PER 500MG) As Ordered (11:18)
[2018-01-24] MEDS: ISOVUE-300 61% 50ML VIAL (Q9967) As Ordered ×2 (11:34)
[2018-01-24] MEDS: LIDOCAINE 1% SDV INJ 30 ML VIAL As Ordered (11:55)
[2018-01-24] MEDS: CEFAZOLIN SOD 1 GM in APPROPRIATE DILUENT 1 EA IV (11:59)
[2018-01-24] MEDS: BACITRACIN OINT 30GM As Ordered (12:30)
[2018-01-24] MEDS ORDERED: ONDANSETRON 4MG/2ML VIAL (J2405) IV (13:30)
[2018-01-24] MEDS ORDERED: fentaNYL 100 MCG/2 ML INJECTION (J3010) IV (13:30)
[2018-01-24] MEDS ORDERED: FLUMAZENIL 0.5 MG/5 ML VIAL As Ordered (13:40)
[2018-01-24] MEDS: FLUMAZENIL 0.5 MG/5 ML VIAL IV (13:40)
[2018-01-24] MEDS: traMADol 50 MG TAB PO (16:13)
[2018-01-24] MEDS: ASCORBIC ACID 250 MG TAB PO (21:05)
[2018-01-24] MEDS: ATENOLOL 25 MG TAB PO (21:05)
[2018-01-25 04:10] LABS: HEMATOCRIT 32.7 % (42.0-52.0); HEMOGLOBIN 10.7 g/dl (14.0-18.0); MEAN CORPUSCULAR HEMOGLOBIN 30.4 pg (27.0-33.0); MEAN CORPUSCULAR HGB CONC 32.7 g/dl (32.0-36.5); MEAN CORPUSCULAR VOLUME 92.9 fl (80.0-96.0); PLATELET COUNT, AUTOMATED 312 10^3/uL (150-450); RED BLOOD COUNT 3.52 10^6/uL (4.30-6.10); RED CELL DISTRIBUTION WIDTH 14.2 % (11.5-14.5); WHITE BLOOD COUNT 9.4 10^3/uL (4.0-10.0)
[2018-01-25 04:25] LABS: ANION GAP 8 MEQ/L (8-16); BLOOD UREA NITROGEN 27 MG/DL (7-18); CALCIUM LEVEL 8.6 MG/DL (8.8-10.2); CARBON DIOXIDE LEVEL 28 MEQ/L (21-32); CHLORIDE LEVEL 103 MEQ/L (98-107); CREATININE FOR GFR 1.03 MG/DL (0.70-1.30); GLOMERULAR FILTRATION RATE > 60.0 (>35); GLUCOSE, FASTING 83 MG/DL (70-100); MAGNESIUM LEVEL 2.3 MG/DL (1.8-2.4); POTASSIUM SERUM 4.8 MEQ/L (3.5-5.1); SODIUM LEVEL 139 MEQ/L (136-145)
[2018-01-25] MEDS: GABAPENTIN 100 MG CAP PO ×3 (05:28→21:01)
[2018-01-25] MEDS: SLF 3 ML SYR IV ×3 (05:29→21:03)
[2018-01-25] MEDS: BREO ELLIPTA 200-25MCG/INH (PATIENT'S OWN MED) INH (07:48)
[2018-01-25] MEDS: ASCORBIC ACID 250 MG TAB PO ×2 (08:00→21:01)
[2018-01-25] MEDS: SENOKOT S TAB PO ×2 (08:00→21:02)
[2018-01-25] MEDS: FUROSEMIDE 40 MG TAB PO (08:00)
[2018-01-25] MEDS: POTASSIUM CHLORIDE 10 MEQ SR TABLET PO (08:01)
[2018-01-25] MEDS: LANSOPRAZOLE SUSPENSION 30 MG/10 ML ORAL SYRINGE (FIRST-LANSOPRAZOLE) PO (08:01)
[2018-01-25] MEDS: traMADol 50 MG TAB PO (08:01)
[2018-01-25] MEDS: SANTYL OINT 30GM TOP (08:02)
[2018-01-25] MEDS: EUCERIN 120GM CREAM TOP ×2 (08:02→21:05)
[2018-01-25] MEDS: DIAPER RELIEF PASTE (DESITIN) 60GM TOP (08:03)
[2018-01-25] MEDS: ATENOLOL 25 MG TAB PO ×2 (12:20→21:01)
[2018-01-25] MEDS: oxyCODONE 5MG TAB PO ×2 (12:20→21:02)
[2018-01-25] MEDS: RIVAROXABAN 15 MG TAB (XARELTO) PO (18:27)
[2018-01-26] MEDS: SLF 3 ML SYR IV ×3 (05:55→20:32)
[2018-01-26] MEDS: GABAPENTIN 100 MG CAP PO ×3 (05:55→20:30)
[2018-01-26 06:51] LABS: HEMATOCRIT 32.1 % (42.0-52.0); HEMOGLOBIN 10.5 g/dl (14.0-18.0); MEAN CORPUSCULAR HEMOGLOBIN 30.4 pg (27.0-33.0); MEAN CORPUSCULAR HGB CONC 32.7 g/dl (32.0-36.5); PLATELET COUNT, AUTOMATED 272 10^3/uL (150-450); RED BLOOD COUNT 3.45 10^6/uL (4.30-6.10); RED CELL DISTRIBUTION WIDTH 14.2 % (11.5-14.5); WHITE BLOOD COUNT 9.2 10^3/uL (4.0-10.0)
[2018-01-26 07:16] LABS: ANION GAP 7 MEQ/L (8-16); BLOOD UREA NITROGEN 25 MG/DL (7-18); CALCIUM LEVEL 8.8 MG/DL (8.8-10.2); CARBON DIOXIDE LEVEL 29 MEQ/L (21-32); CHLORIDE LEVEL 101 MEQ/L (98-107); CREATININE FOR GFR 1.09 MG/DL (0.70-1.30); GLOMERULAR FILTRATION RATE > 60.0 (>35); GLUCOSE, FASTING 84 MG/DL (70-100); MAGNESIUM LEVEL 2.1 MG/DL (1.8-2.4); POTASSIUM SERUM 4.5 MEQ/L (3.5-5.1); SODIUM LEVEL 137 MEQ/L (136-145)
[2018-01-26] MEDS: BREO ELLIPTA 200-25MCG/INH (PATIENT'S OWN MED) INH (07:23)
[2018-01-26] MEDS: LANSOPRAZOLE SUSPENSION 30 MG/10 ML ORAL SYRINGE (FIRST-LANSOPRAZOLE) PO (08:40)
[2018-01-26] MEDS: ATENOLOL 25 MG TAB PO ×2 (08:40→20:31)
[2018-01-26] MEDS: FUROSEMIDE 20 MG TAB PO (08:41)
[2018-01-26] MEDS: POTASSIUM CHLORIDE 10 MEQ SR TABLET PO (08:41)
[2018-01-26] MEDS: SENOKOT S TAB PO ×3 (08:41→20:31)
[2018-01-26] MEDS: ASCORBIC ACID 250 MG TAB PO ×2 (08:41→20:31)
[2018-01-26] MEDS: oxyCODONE 5MG TAB PO (08:42)
[2018-01-26] MEDS: DIAPER RELIEF PASTE (DESITIN) 60GM TOP (08:43)
[2018-01-26] MEDS: EUCERIN 120GM CREAM TOP ×2 (08:43→20:32)
[2018-01-26] MEDS: SANTYL OINT 30GM TOP (08:44)
[2018-01-26] MEDS ORDERED: ISOVUE-370 76% 100ML VIAL (Q9967) As Ordered (14:14)
[2018-01-26 15:10] LABS: ALBUMIN 2.6 GM/DL (3.2-5.2); ALBUMIN/GLOBULIN RATIO 0.62 (1.00-1.93); ALKALINE PHOSPHATASE 87 U/L (45-117); ALT/SGPT 14 U/L (12-78); AST/SGOT 18 U/L (7-37); BILIRUBIN,DIRECT 0.2 MG/DL (0.0-0.2); BILIRUBIN,TOTAL 0.6 MG/DL (0.2-1.0); TOTAL PROTEIN 6.8 GM/DL (6.4-8.2)
[2018-01-26] MEDS: RIVAROXABAN 15 MG TAB (XARELTO) PO (17:31)
[2018-01-26] MEDS: traMADol 50 MG TAB PO (20:31)
[2018-01-27 06:01] LABS: HEMATOCRIT 34.6 % (42.0-52.0); HEMOGLOBIN 11.1 g/dl (14.0-18.0); MEAN CORPUSCULAR HEMOGLOBIN 29.9 pg (27.0-33.0); MEAN CORPUSCULAR HGB CONC 32.1 g/dl (32.0-36.5); MEAN CORPUSCULAR VOLUME 93.3 fl (80.0-96.0); PLATELET COUNT, AUTOMATED 278 10^3/uL (150-450); RED BLOOD COUNT 3.71 10^6/uL (4.30-6.10); RED CELL DISTRIBUTION WIDTH 14.2 % (11.5-14.5); WHITE BLOOD COUNT 11.8 10^3/uL (4.0-10.0)
[2018-01-27] MEDS: SLF 3 ML SYR IV ×3 (06:12→21:48)
[2018-01-27] MEDS: GABAPENTIN 100 MG CAP PO ×3 (06:12→20:59)
[2018-01-27 06:22] LABS: ANION GAP 9 MEQ/L (8-16); BLOOD UREA NITROGEN 25 MG/DL (7-18); CALCIUM LEVEL 8.6 MG/DL (8.8-10.2); CARBON DIOXIDE LEVEL 28 MEQ/L (21-32); CHLORIDE LEVEL 101 MEQ/L (98-107); CREATININE FOR GFR 1.27 MG/DL (0.70-1.30); GLOMERULAR FILTRATION RATE 56.8 (>35); GLUCOSE, FASTING 103 MG/DL (70-100); MAGNESIUM LEVEL 2.1 MG/DL (1.8-2.4); POTASSIUM SERUM 4.1 MEQ/L (3.5-5.1); SODIUM LEVEL 138 MEQ/L (136-145)
[2018-01-27] MEDS: BREO ELLIPTA 200-25MCG/INH (PATIENT'S OWN MED) INH (07:23)
[2018-01-27] MEDS: POTASSIUM CHLORIDE 10 MEQ SR TABLET PO (08:29)
[2018-01-27] MEDS: LANSOPRAZOLE SUSPENSION 30 MG/10 ML ORAL SYRINGE (FIRST-LANSOPRAZOLE) PO (08:29)
[2018-01-27] MEDS: FUROSEMIDE 20 MG TAB PO (08:30)
[2018-01-27] MEDS: DIAPER RELIEF PASTE (DESITIN) 60GM TOP (08:30)
[2018-01-27] MEDS: SENOKOT S TAB PO ×2 (08:30→20:59)
[2018-01-27] MEDS: ATENOLOL 25 MG TAB PO ×2 (08:30→20:59)
[2018-01-27] MEDS: ASCORBIC ACID 250 MG TAB PO ×2 (08:30→20:59)
[2018-01-27] MEDS: EUCERIN 120GM CREAM TOP ×2 (08:31→21:48)
[2018-01-27] MEDS: SANTYL OINT 30GM TOP (08:31)
[2018-01-27] MEDS: IPRATROPIUM 0.5MG/ALBUTEROL 2.5MG INH SOL UD 3ML (DUONEB)(J7620) NEB ×4 (12:00→22:48)
[2018-01-27] MEDS ORDERED: ALBUTEROL SULFATE 2.5 MG/0.5 ML INH NEB SOLN INH (12:45)
[2018-01-27 13:18] LABS: C REACTIVE PROTEIN QUANTITATIV 4.27 MG/DL (0.00-0.30)
[2018-01-27] MEDS: oxyCODONE 5MG TAB PO ×2 (15:04→21:00)
[2018-01-27] MEDS: FUROSEMIDE 40 MG/4 ML VIAL (J1940) IV (15:05)
[2018-01-27] MEDS: guaiFENesin ER 600 MG TAB PO ×2 (15:05→20:59)
[2018-01-27] MEDS: traMADol 50 MG TAB PO (16:43)
[2018-01-27] MEDS: RIVAROXABAN 15 MG TAB (XARELTO) PO (18:19)
[2018-01-28] MEDS: IPRATROPIUM 0.5MG/ALBUTEROL 2.5MG INH SOL UD 3ML (DUONEB)(J7620) NEB ×6 (04:01→22:10)
[2018-01-28] MEDS: GABAPENTIN 100 MG CAP PO ×3 (05:52→21:33)
[2018-01-28] MEDS: SLF 3 ML SYR IV ×3 (05:52→21:33)
[2018-01-28 06:46] LABS: HEMATOCRIT 36.9 % (42.0-52.0); HEMOGLOBIN 12.1 g/dl (14.0-18.0); MEAN CORPUSCULAR HEMOGLOBIN 30.3 pg (27.0-33.0); MEAN CORPUSCULAR HGB CONC 32.8 g/dl (32.0-36.5); MEAN CORPUSCULAR VOLUME 92.5 fl (80.0-96.0); PLATELET COUNT, AUTOMATED 287 10^3/uL (150-450); RED BLOOD COUNT 3.99 10^6/uL (4.30-6.10); RED CELL DISTRIBUTION WIDTH 14.2 % (11.5-14.5); WHITE BLOOD COUNT 14.5 10^3/uL (4.0-10.0)
[2018-01-28 07:08] LABS: ANION GAP 9 MEQ/L (8-16); BLOOD UREA NITROGEN 25 MG/DL (7-18); CALCIUM LEVEL 9.5 MG/DL (8.8-10.2); CARBON DIOXIDE LEVEL 27 MEQ/L (21-32); CHLORIDE LEVEL 102 MEQ/L (98-107); CREATININE FOR GFR 1.25 MG/DL (0.70-1.30); GLOMERULAR FILTRATION RATE 57.9 (>35); GLUCOSE, FASTING 102 MG/DL (70-100); MAGNESIUM LEVEL 2.2 MG/DL (1.8-2.4); POTASSIUM SERUM 4.2 MEQ/L (3.5-5.1); SODIUM LEVEL 138 MEQ/L (136-145)
[2018-01-28] MEDS: BREO ELLIPTA 200-25MCG/INH (PATIENT'S OWN MED) INH (07:27)
[2018-01-28 08:08] LABS: C REACTIVE PROTEIN QUANTITATIV 7.59 MG/DL (0.00-0.30)
[2018-01-28] MEDS: LANSOPRAZOLE SUSPENSION 30 MG/10 ML ORAL SYRINGE (FIRST-LANSOPRAZOLE) PO (08:36)
[2018-01-28] MEDS: POTASSIUM CHLORIDE 10 MEQ SR TABLET PO (08:36)
[2018-01-28] MEDS: SENOKOT S TAB PO ×2 (08:36→21:00)
[2018-01-28] MEDS: oxyCODONE 5MG TAB PO ×2 (08:37→21:29)
[2018-01-28] MEDS: ASCORBIC ACID 250 MG TAB PO ×2 (08:37→21:31)
[2018-01-28] MEDS: guaiFENesin ER 600 MG TAB PO ×2 (08:37→21:29)
[2018-01-28] MEDS: ATENOLOL 25 MG TAB PO ×2 (08:37→21:30)
[2018-01-28] MEDS: FUROSEMIDE 40 MG/4 ML VIAL (J1940) IV (08:39)
[2018-01-28] MEDS: EUCERIN 120GM CREAM TOP ×2 (08:40→21:31)
[2018-01-28] MEDS: SANTYL OINT 30GM TOP (08:40)
[2018-01-28] MEDS: DIAPER RELIEF PASTE (DESITIN) 60GM TOP (08:41)
[2018-01-29] MEDS: IPRATROPIUM 0.5MG/ALBUTEROL 2.5MG INH SOL UD 3ML (DUONEB)(J7620) NEB ×5 (04:01→23:48)
[2018-01-29] MEDS: GABAPENTIN 100 MG CAP PO ×3 (05:08→22:09)
[2018-01-29] MEDS: SLF 3 ML SYR IV ×3 (05:09→22:00)
[2018-01-29] MEDS: POTASSIUM CHLORIDE 10 MEQ SR TABLET PO (08:18)
[2018-01-29] MEDS: ATENOLOL 25 MG TAB PO ×2 (08:18→22:10)
[2018-01-29] MEDS: LANSOPRAZOLE SUSPENSION 30 MG/10 ML ORAL SYRINGE (FIRST-LANSOPRAZOLE) PO (08:19)
[2018-01-29] MEDS: SENOKOT S TAB PO ×4 (08:19→22:13)
[2018-01-29] MEDS: ASCORBIC ACID 250 MG TAB PO ×2 (08:19→22:09)
[2018-01-29] MEDS: oxyCODONE 5MG TAB PO (08:19)
[2018-01-29] MEDS: guaiFENesin ER 600 MG TAB PO ×2 (08:19→22:09)
[2018-01-29] MEDS: EUCERIN 120GM CREAM TOP ×2 (08:20→22:10)
[2018-01-29] MEDS: DIAPER RELIEF PASTE (DESITIN) 60GM TOP (08:20)
[2018-01-29 08:21] LABS: BASO % 0.3 % (0.0-1.0); EOS % 0.3 % (0.0-3.0); HEMATOCRIT 30.8 % (42.0-52.0); HEMOGLOBIN 10.1 g/dl (14.0-18.0); IMMATURE GRANULOCYTE % 0.9 % (0-3.0); LYMPH # 0.7 10^3/uL (1.5-4.5); MEAN CORPUSCULAR HEMOGLOBIN 30.4 pg (27.0-33.0); MEAN CORPUSCULAR HGB CONC 32.8 g/dl (32.0-36.5); MEAN CORPUSCULAR VOLUME 92.8 fl (80.0-96.0); MONO # 1.1 10^3/uL (0.0-0.8); MONO % 8.5 % (0.0-5.0); NEUTROPHILS # 11.1 10^3/uL (1.8-7.7); PLATELET COUNT, AUTOMATED 208 10^3/uL (150-450); RED BLOOD COUNT 3.32 10^6/uL (4.30-6.10); RED CELL DISTRIBUTION WIDTH 14.3 % (11.5-14.5)
[2018-01-29] MEDS: BREO ELLIPTA 200-25MCG/INH (PATIENT'S OWN MED) INH (08:29)
[2018-01-29 08:31] LABS: ALBUMIN 2.5 GM/DL (3.2-5.2); ALBUMIN/GLOBULIN RATIO 0.61 (1.00-1.93); ALKALINE PHOSPHATASE 83 U/L (45-117); ALT/SGPT 11 U/L (12-78); ANION GAP 9 MEQ/L (8-16); AST/SGOT 14 U/L (7-37); BILIRUBIN,TOTAL 0.9 MG/DL (0.2-1.0); BLOOD UREA NITROGEN 32 MG/DL (7-18); CALCIUM LEVEL 8.5 MG/DL (8.8-10.2); CARBON DIOXIDE LEVEL 25 MEQ/L (21-32); CHLORIDE LEVEL 105 MEQ/L (98-107); CREATININE FOR GFR 1.24 MG/DL (0.70-1.30); GLOMERULAR FILTRATION RATE 58.4 (>35); GLUCOSE, FASTING 102 MG/DL (70-100); MAGNESIUM LEVEL 1.8 MG/DL (1.8-2.4); POTASSIUM SERUM 4.2 MEQ/L (3.5-5.1); SODIUM LEVEL 139 MEQ/L (136-145); TOTAL PROTEIN 6.6 GM/DL (6.4-8.2)
[2018-01-29] MEDS ORDERED: FUROSEMIDE 40 MG/4 ML VIAL (J1940) IV (09:00)
[2018-01-29 09:44] LABS: LDH LACTATE DEHYDROGENASE 187 U/L (87-241)
[2018-01-29 11:46] LABS: INR 1.37; PROTHROMBIN TIME 17.2 SECONDS (12.4-14.5)
[2018-01-29] MEDS ORDERED: LIDOCAINE 1% MDV 20ML VIAL As Ordered (12:02)
[2018-01-29 13:13] LABS: PH BODY FLUID 7.711 UNITS (NOT ESTABLISHED); SOURCE, BODY FLUID pH PLEURAL
[2018-01-29 13:17] LABS: BF MONONUCLEAR CELL % 80.8 % (0-0); BF POLYMORPHONUCLEAR CELL % 19.2 % (0-0); RBC BODY FLUID 9 10^3/uL (<2); WBC BODY FLUID 859 /uL (0-10)
[2018-01-29 13:20] LABS: APPEARANCE, BODY FLUID CLOUDY (CLEAR); BF DIFF IF INDICATED? YES (NO); PLEURAL FL COLOR ORANGE (COLORLESS); SOURCE, BODY FLUID PLEURAL
[2018-01-29 13:21] LABS: CC BF DIFF EXAM UNSPUN
[2018-01-29 13:47] LABS: AMYLASE, BODY FLUID 36 U/L (NOT ESTABLISHED); LDH, BODY FLUID 114 U/L (NOT ESTABLISHED); SOURCE, BODY FLUID ALBUMIN PLEURAL; SOURCE, BODY FLUID AMYLASE PLEURAL; SOURCE, BODY FLUID GLUCOSE PLEURAL; SOURCE, BODY FLUID LDH PLEURAL; SOURCE, BODY FLUID TOT PROTEIN PLEURAL; SOURCE, BODY FLUID TRIG PLEURAL; TOTAL PROTEIN, BODY FLUID 3.6 G/DL (NOT ESTABLISHED); TRIGLYCERIDE, BODY FLUID 11 MG/DL (NOT ESTABLISHED)
[2018-01-29] MEDS: ACETAMINOPHEN TAB 650MG DOSE (2X325MG) PO (14:28)
[2018-01-29] MEDS: traMADol 50 MG TAB PO (22:39)
[2018-01-30] MEDS: LIDOCAINE 2% 5ML JELLY UROJET TOP (04:15)
[2018-01-30] MEDS: SLF 3 ML SYR IV ×3 (06:00→20:14)
[2018-01-30] MEDS: GABAPENTIN 100 MG CAP PO ×3 (06:02→20:12)
[2018-01-30 06:34] LABS: BASO % 0.3 % (0.0-1.0); EOS % 0.4 % (0.0-3.0); HEMATOCRIT 34.3 % (42.0-52.0); HEMOGLOBIN 11.1 g/dl (14.0-18.0); IMMATURE GRANULOCYTE % 1.2 % (0-3.0); LYMPH # 0.6 10^3/uL (1.5-4.5); LYMPH % 5.2 % (24.0-44.0); MEAN CORPUSCULAR HEMOGLOBIN 29.8 pg (27.0-33.0); MEAN CORPUSCULAR HGB CONC 32.4 g/dl (32.0-36.5); MONO # 0.8 10^3/uL (0.0-0.8); MONO % 7.5 % (0.0-5.0); NEUTROPHILS # 9.1 10^3/uL (1.8-7.7); NEUTROPHILS % 85.4 % (36.0-66.0); PLATELET COUNT, AUTOMATED 226 10^3/uL (150-450); RED BLOOD COUNT 3.73 10^6/uL (4.30-6.10); RED CELL DISTRIBUTION WIDTH 14.1 % (11.5-14.5); WHITE BLOOD COUNT 10.6 10^3/uL (4.0-10.0)
[2018-01-30 06:55] LABS: ANION GAP 7 MEQ/L (8-16); BLOOD UREA NITROGEN 32 MG/DL (7-18); CARBON DIOXIDE LEVEL 27 MEQ/L (21-32); CHLORIDE LEVEL 102 MEQ/L (98-107); GLOMERULAR FILTRATION RATE > 60.0 (>35); GLUCOSE, FASTING 96 MG/DL (70-100); POTASSIUM SERUM 4.3 MEQ/L (3.5-5.1); SODIUM LEVEL 136 MEQ/L (136-145)
[2018-01-30] MEDS: BREO ELLIPTA 200-25MCG/INH (PATIENT'S OWN MED) INH (07:40)
[2018-01-30] MEDS: IPRATROPIUM 0.5MG/ALBUTEROL 2.5MG INH SOL UD 3ML (DUONEB)(J7620) NEB ×4 (07:41→19:48)
[2018-01-30] MEDS: SENOKOT S TAB PO ×2 (09:00→20:12)
[2018-01-30] MEDS: DIAPER RELIEF PASTE (DESITIN) 60GM TOP (09:00)
[2018-01-30] MEDS: POTASSIUM CHLORIDE 10 MEQ SR TABLET PO (09:46)
[2018-01-30] MEDS: guaiFENesin ER 600 MG TAB PO ×2 (09:47→20:11)
[2018-01-30] MEDS: ASCORBIC ACID 250 MG TAB PO ×2 (09:47→20:11)
[2018-01-30] MEDS: ATENOLOL 25 MG TAB PO ×2 (09:47→20:11)
[2018-01-30] MEDS: LANSOPRAZOLE SUSPENSION 30 MG/10 ML ORAL SYRINGE (FIRST-LANSOPRAZOLE) PO (09:49)
[2018-01-30] MEDS: EUCERIN 120GM CREAM TOP ×2 (09:50→20:13)
[2018-01-30] MEDS: oxyCODONE 5MG TAB PO ×2 (10:40→20:12)
[2018-01-30] MEDS: RIVAROXABAN 15 MG TAB (XARELTO) PO (18:07)
[2018-01-31] MEDS: IPRATROPIUM 0.5MG/ALBUTEROL 2.5MG INH SOL UD 3ML (DUONEB)(J7620) NEB ×7 (02:59→23:43)
[2018-01-31 06:01] LABS: BASO % 0.3 % (0.0-1.0); EOS # 0.1 10^3/uL (0.0-0.50); EOS % 0.6 % (0.0-3.0); HEMATOCRIT 31.7 % (42.0-52.0); HEMOGLOBIN 10.2 g/dl (14.0-18.0); IMMATURE GRANULOCYTE % 0.8 % (0-3.0); LYMPH # 0.8 10^3/uL (1.5-4.5); LYMPH % 8.1 % (24.0-44.0); MEAN CORPUSCULAR HEMOGLOBIN 29.7 pg (27.0-33.0); MEAN CORPUSCULAR HGB CONC 32.2 g/dl (32.0-36.5); MEAN CORPUSCULAR VOLUME 92.2 fl (80.0-96.0); MONO # 1.1 10^3/uL (0.0-0.8); MONO % 10.7 % (0.0-5.0); NEUTROPHILS # 7.8 10^3/uL (1.8-7.7); NEUTROPHILS % 79.5 % (36.0-66.0); PLATELET COUNT, AUTOMATED 228 10^3/uL (150-450); RED BLOOD COUNT 3.44 10^6/uL (4.30-6.10); RED CELL DISTRIBUTION WIDTH 14.2 % (11.5-14.5); WHITE BLOOD COUNT 9.8 10^3/uL (4.0-10.0)
[2018-01-31 06:20] LABS: ANION GAP 6 MEQ/L (8-16); BLOOD UREA NITROGEN 27 MG/DL (7-18); C REACTIVE PROTEIN QUANTITATIV 8.42 MG/DL (0.00-0.30); CALCIUM LEVEL 8.9 MG/DL (8.8-10.2); CARBON DIOXIDE LEVEL 27 MEQ/L (21-32); CHLORIDE LEVEL 105 MEQ/L (98-107); CREATININE FOR GFR 1.08 MG/DL (0.70-1.30); GLOMERULAR FILTRATION RATE > 60.0 (>35); GLUCOSE, FASTING 85 MG/DL (70-100); POTASSIUM SERUM 4.4 MEQ/L (3.5-5.1); SODIUM LEVEL 138 MEQ/L (136-145)
[2018-01-31] MEDS: GABAPENTIN 100 MG CAP PO ×3 (06:25→21:09)
[2018-01-31] MEDS: BREO ELLIPTA 200-25MCG/INH (PATIENT'S OWN MED) INH (07:49)
[2018-01-31] MEDS: SENOKOT S TAB PO ×2 (09:00→21:08)
[2018-01-31] MEDS: ATENOLOL 25 MG TAB PO ×2 (09:03→21:10)
[2018-01-31] MEDS: ASCORBIC ACID 250 MG TAB PO ×2 (09:04→21:10)
[2018-01-31] MEDS: guaiFENesin ER 600 MG TAB PO ×2 (09:04→21:10)
[2018-01-31] MEDS: POTASSIUM CHLORIDE 10 MEQ SR TABLET PO (09:04)
[2018-01-31] MEDS: DIAPER RELIEF PASTE (DESITIN) 60GM TOP (09:04)
[2018-01-31] MEDS: EUCERIN 120GM CREAM TOP ×2 (09:06→21:11)
[2018-01-31] MEDS: LANSOPRAZOLE SUSPENSION 30 MG/10 ML ORAL SYRINGE (FIRST-LANSOPRAZOLE) PO (09:06)
[2018-01-31] MEDS: RIVAROXABAN 15 MG TAB (XARELTO) PO (17:57)
[2018-01-31] MEDS: traMADol 50 MG TAB PO (21:10)
[2018-02-01] MEDS: oxyCODONE 5MG TAB PO ×2 (01:27→09:38)
[2018-02-01] MEDS: IPRATROPIUM 0.5MG/ALBUTEROL 2.5MG INH SOL UD 3ML (DUONEB)(J7620) NEB ×6 (03:51→23:50)
[2018-02-01] MEDS: GABAPENTIN 100 MG CAP PO ×3 (05:43→21:05)
[2018-02-01 05:59] LABS: BASO # 0.1 10^3/uL (0.0-0.2); BASO % 0.7 % (0.0-1.0); EOS # 0.2 10^3/uL (0.0-0.50); EOS % 2.2 % (0.0-3.0); HEMATOCRIT 30.8 % (42.0-52.0); IMMATURE GRANULOCYTE % 1.9 % (0-3.0); LYMPH # 0.9 10^3/uL (1.5-4.5); LYMPH % 12.7 % (24.0-44.0); MEAN CORPUSCULAR HEMOGLOBIN 29.5 pg (27.0-33.0); MEAN CORPUSCULAR HGB CONC 32.5 g/dl (32.0-36.5); MEAN CORPUSCULAR VOLUME 90.9 fl (80.0-96.0); MONO # 0.9 10^3/uL (0.0-0.8); MONO % 13.6 % (0.0-5.0); NEUTROPHILS # 4.8 10^3/uL (1.8-7.7); NEUTROPHILS % 68.9 % (36.0-66.0); PLATELET COUNT, AUTOMATED 228 10^3/uL (150-450); RED BLOOD COUNT 3.39 10^6/uL (4.30-6.10); RED CELL DISTRIBUTION WIDTH 13.9 % (11.5-14.5); WHITE BLOOD COUNT 6.9 10^3/uL (4.0-10.0)
[2018-02-01 06:21] LABS: ANION GAP 7 MEQ/L (8-16); BLOOD UREA NITROGEN 27 MG/DL (7-18); C REACTIVE PROTEIN QUANTITATIV 6.57 MG/DL (0.00-0.30); CALCIUM LEVEL 8.5 MG/DL (8.8-10.2); CARBON DIOXIDE LEVEL 24 MEQ/L (21-32); CHLORIDE LEVEL 105 MEQ/L (98-107); CREATININE FOR GFR 1.03 MG/DL (0.70-1.30); GLOMERULAR FILTRATION RATE > 60.0 (>35); GLUCOSE, FASTING 88 MG/DL (70-100); POTASSIUM SERUM 4.4 MEQ/L (3.5-5.1); SODIUM LEVEL 136 MEQ/L (136-145)
[2018-02-01] MEDS: BREO ELLIPTA 200-25MCG/INH (PATIENT'S OWN MED) INH (07:20)
[2018-02-01] MEDS: SENOKOT S TAB PO ×3 (09:00→21:07)
[2018-02-01] MEDS: DIAPER RELIEF PASTE (DESITIN) 60GM TOP (09:17)
[2018-02-01] MEDS: EUCERIN 120GM CREAM TOP ×2 (09:17→21:06)
[2018-02-01] MEDS: POTASSIUM CHLORIDE 10 MEQ SR TABLET PO (09:18)
[2018-02-01] MEDS: ASCORBIC ACID 250 MG TAB PO ×2 (09:18→21:05)
[2018-02-01] MEDS: guaiFENesin ER 600 MG TAB PO ×2 (09:18→21:05)
[2018-02-01] MEDS: ATENOLOL 25 MG TAB PO ×2 (09:18→21:05)
[2018-02-01] MEDS: LANSOPRAZOLE SUSPENSION 30 MG/10 ML ORAL SYRINGE (FIRST-LANSOPRAZOLE) PO (09:19)
[2018-02-01] MEDS: traMADol 50 MG TAB PO (13:15)
[2018-02-01] MEDS: RIVAROXABAN 15 MG TAB (XARELTO) PO (17:16)
[2018-02-02] MEDS: IPRATROPIUM 0.5MG/ALBUTEROL 2.5MG INH SOL UD 3ML (DUONEB)(J7620) NEB ×5 (03:02→19:55)
[2018-02-02] MEDS: GABAPENTIN 100 MG CAP PO ×3 (05:25→21:12)
[2018-02-02] MEDS: traMADol 50 MG TAB PO (05:25)
[2018-02-02 07:24] LABS: BASO # 0.1 10^3/uL (0.0-0.2); BASO % 0.6 % (0.0-1.0); EOS # 0.1 10^3/uL (0.0-0.50); EOS % 1.5 % (0.0-3.0); HEMATOCRIT 32.9 % (42.0-52.0); HEMOGLOBIN 10.6 g/dl (14.0-18.0); IMMATURE GRANULOCYTE % 1.5 % (0-3.0); LYMPH # 0.8 10^3/uL (1.5-4.5); LYMPH % 8.2 % (24.0-44.0); MEAN CORPUSCULAR HEMOGLOBIN 30.4 pg (27.0-33.0); MEAN CORPUSCULAR HGB CONC 32.2 g/dl (32.0-36.5); MEAN CORPUSCULAR VOLUME 94.3 fl (80.0-96.0); MONO % 10.7 % (0.0-5.0); NEUTROPHILS # 7.4 10^3/uL (1.8-7.7); NEUTROPHILS % 77.5 % (36.0-66.0); PLATELET COUNT, AUTOMATED 230 10^3/uL (150-450); RED BLOOD COUNT 3.49 10^6/uL (4.30-6.10); RED CELL DISTRIBUTION WIDTH 14.1 % (11.5-14.5); WHITE BLOOD COUNT 9.6 10^3/uL (4.0-10.0)
[2018-02-02 07:38] LABS: ANION GAP 7 MEQ/L (8-16); BLOOD UREA NITROGEN 27 MG/DL (7-18); C REACTIVE PROTEIN QUANTITATIV 5.22 MG/DL (0.00-0.30); CARBON DIOXIDE LEVEL 24 MEQ/L (21-32); CHLORIDE LEVEL 105 MEQ/L (98-107); CREATININE FOR GFR 1.11 MG/DL (0.70-1.30); GLOMERULAR FILTRATION RATE > 60.0 (>35); GLUCOSE, FASTING 77 MG/DL (70-100); POTASSIUM SERUM 4.4 MEQ/L (3.5-5.1); SODIUM LEVEL 136 MEQ/L (136-145)
[2018-02-02] MEDS: BREO ELLIPTA 200-25MCG/INH (PATIENT'S OWN MED) INH (08:11)
[2018-02-02] MEDS: LANSOPRAZOLE SUSPENSION 30 MG/10 ML ORAL SYRINGE (FIRST-LANSOPRAZOLE) PO (08:28)
[2018-02-02] MEDS: POTASSIUM CHLORIDE 10 MEQ SR TABLET PO (08:29)
[2018-02-02] MEDS: SENOKOT S TAB PO ×3 (08:29→21:12)
[2018-02-02] MEDS: ATENOLOL 25 MG TAB PO ×2 (08:29→21:11)
[2018-02-02] MEDS: DIAPER RELIEF PASTE (DESITIN) 60GM TOP (08:29)
[2018-02-02] MEDS: ASCORBIC ACID 250 MG TAB PO ×2 (08:29→21:12)
[2018-02-02] MEDS: guaiFENesin ER 600 MG TAB PO ×2 (08:29→21:11)
[2018-02-02] MEDS: EUCERIN 120GM CREAM TOP ×2 (08:30→21:13)
[2018-02-02] MEDS: oxyCODONE 5MG TAB PO (08:32)
[2018-02-02] MEDS: RIVAROXABAN 15 MG TAB (XARELTO) PO (17:47)
[2018-02-03] MEDS: IPRATROPIUM 0.5MG/ALBUTEROL 2.5MG INH SOL UD 3ML (DUONEB)(J7620) NEB ×3 (04:00→08:00)
[2018-02-03] MEDS: GABAPENTIN 100 MG CAP PO (06:00)
[2018-02-03 06:36] LABS: BASO % 0.2 % (0.0-1.0); EOS # 0.1 10^3/uL (0.0-0.50); EOS % 1.1 % (0.0-3.0); HEMATOCRIT 32.2 % (42.0-52.0); HEMOGLOBIN 10.5 g/dl (14.0-18.0); IMMATURE GRANULOCYTE % 1.4 % (0-3.0); LYMPH # 0.6 10^3/uL (1.5-4.5); LYMPH % 7.2 % (24.0-44.0); MEAN CORPUSCULAR HEMOGLOBIN 29.9 pg (27.0-33.0); MEAN CORPUSCULAR HGB CONC 32.6 g/dl (32.0-36.5); MEAN CORPUSCULAR VOLUME 91.7 fl (80.0-96.0); MONO # 0.8 10^3/uL (0.0-0.8); NEUTROPHILS # 7.1 10^3/uL (1.8-7.7); NEUTROPHILS % 81.1 % (36.0-66.0); PLATELET COUNT, AUTOMATED 242 10^3/uL (150-450); RED BLOOD COUNT 3.51 10^6/uL (4.30-6.10); RED CELL DISTRIBUTION WIDTH 14.1 % (11.5-14.5); WHITE BLOOD COUNT 8.7 10^3/uL (4.0-10.0)
[2018-02-03 06:58] LABS: ANION GAP 7 MEQ/L (8-16); BLOOD UREA NITROGEN 24 MG/DL (7-18); CARBON DIOXIDE LEVEL 25 MEQ/L (21-32); CHLORIDE LEVEL 105 MEQ/L (98-107); CREATININE FOR GFR 1.05 MG/DL (0.70-1.30); GLOMERULAR FILTRATION RATE > 60.0 (>35); GLUCOSE, FASTING 84 MG/DL (70-100); POTASSIUM SERUM 4.4 MEQ/L (3.5-5.1); SODIUM LEVEL 137 MEQ/L (136-145)
[2018-02-03] MEDS: guaiFENesin ER 600 MG TAB PO (08:09)
[2018-02-03] MEDS: ASCORBIC ACID 250 MG TAB PO (08:09)
[2018-02-03] MEDS: LANSOPRAZOLE SUSPENSION 30 MG/10 ML ORAL SYRINGE (FIRST-LANSOPRAZOLE) PO (08:10)
[2018-02-03] MEDS: POTASSIUM CHLORIDE 10 MEQ SR TABLET PO (08:10)
[2018-02-03] MEDS: SENOKOT S TAB PO (08:13)
[2018-02-03] MEDS: ATENOLOL 25 MG TAB PO (08:13)
[2018-02-03] MEDS: EUCERIN 120GM CREAM TOP (08:14)
[2018-02-03] MEDS: DIAPER RELIEF PASTE (DESITIN) 60GM TOP (08:14)
[2018-02-03] MEDS: oxyCODONE 5MG TAB PO (08:20)
[2018-02-03] MEDS: BREO ELLIPTA 200-25MCG/INH (PATIENT'S OWN MED) INH (08:59)
== END 2018-02-03 10:40 | DRG 242 ==
LOC: M PCU 01-09 21:24 → M MS5PR 01-25 17:48 → M PCU 12-30 01:12 → M MS5PR 01-25 17:53 → M ED 17:10 → M ED INP 19:26
PROC: 0JH604Z Insertion of Pacemaker, Single Chamber into Chest Subcutaneous Tissue and Fascia, Open Approach (ICD-10-PCS; principal; 2018-01-07 16:48)
PROC: 02HK3JZ Insertion of Pacemaker Lead into Right Ventricle, Percutaneous Approach (ICD-10-PCS; 2018-01-07 16:48)
PROC: 0QC Lower Bones, Extirpation (ICD-10-PCS; 2018-01-07 16:48)
PROC: 0W993ZX Drainage of Right Pleural Cavity, Percutaneous Approach, Diagnostic (ICD-10-PCS; 2018-01-07 16:48)
PROC: 047L3ZZ Dilation of Left Femoral Artery, Percutaneous Approach (ICD-10-PCS; 2018-01-07 16:48)
PROC: B41GYZZ Fluoroscopy of Left Lower Extremity Arteries using Other Contrast (ICD-10-PCS; 2018-01-07 16:48)
DX: I11.0 Hypertensive heart disease with heart failure (principal); I46.9 Cardiac arrest, cause unspecified; L97.319 Non-pressure chronic ulcer of right ankle with unspecified severity; L97.229 Non-pressure chronic ulcer of left calf with unspecified severity; J90 Pleural effusion, not elsewhere classified; I73.9 Peripheral vascular disease, unspecified; I50.9 Heart failure, unspecified; I48.91 Unspecified atrial fibrillation; D72.829 Elevated white blood cell count, unspecified; I49.5 Sick sinus syndrome; E05.90 Thyrotoxicosis, unspecified without thyrotoxic crisis or storm; B96.5 Pseudomonas (aeruginosa) (mallei) (pseudomallei) as the cause of diseases classified elsewhere; B95.61 Methicillin susceptible Staphylococcus aureus infection as the cause of diseases classified elsewhere; J44.9 Chronic obstructive pulmonary disease, unspecified; Z85.46 Personal history of malignant neoplasm of prostate; Z87.891 Personal history of nicotine dependence

== ENCOUNTER 2018-02-05 02:48 | Emergency (ER) | payer MEDICARE, OTHER | END 2018-02-05 04:34 | disposition home or self-care (01) | LOC: M ED 02:48 | DX: H21.562 Pupillary abnormality, left eye (principal); H59.89 Other postprocedural complications and disorders of eye and adnexa, not elsewhere classified; J44.9 Chronic obstructive pulmonary disease, unspecified; K21.9 Gastro-esophageal reflux disease without esophagitis; Z98.890 Other specified postprocedural states; Z79.899 Other long term (current) drug therapy; Z79.51 Long term (current) use of inhaled steroids | CPT/HCPCS: 70450 ==